=== PATIENT | female | born 1960 | race African-American/Black ===

== ENCOUNTER 2016-08-17 22:51 | Emergency (ER) | payer MEDICARE, MEDICAID ==
[2016-08-17] MEDS ORDERED: GUAIFENESIN/CODEINE PHOS 100-10 MG/ 5 ML UDC PO ONE (23:54)
[2016-08-17] MEDS ORDERED: ACETAMINOPHEN 325 MG TABLET PO ONE (23:54)
[2016-08-17] MEDS ORDERED: ONDANSETRON 4 MG TAB.RAPDIS PO ONE (23:54)
--- NOTE | 2016-08-18 00:10 | ER Document Report ---
ED General - General Chief Complaint: Cough Stated Complaint: NEAR SYNCOPE Time seen by provider: 23:25 Mode of Arrival: Medic Information source: Patient TRAVEL OUTSIDE OF THE U.S. IN LAST 30 DAYS: No - HPI Notes: Patient is a pleasant 56-year-old female recently returned from a one-month trip to [facility] 4 days ago presents with report of cough congestion that started 4 days ago with a questionable fever. She's had some nausea and vomited once without blood. She denies any chest pain abdominal pain or diarrhea. The patient reports a mild headache not the worst of her life. She denies any neck stiffness. The patient reports she did not take any prophylactic treatment for malaria while in [facility], and she reports that 4 years ago she had a malarial infection. The patient reports a mild skin rash right forearm, but thinks she may have either had a mosquito bite or some other exposure. No other skin rash. Patient reports she felt somewhat lightheaded at home earlier and called for EMS. Patient had stable vital signs and EMS gave her IV Zofran and a fluid bolus en route to the emergency department. - Related Data Allergies/Adverse Reactions: No Known Allergies Allergy (Verified 08/18/16 00:31) Past Medical History - General Information source: Patient - Social History Smoking Status: Never Smoker Cigarette use (# per day): No Frequency of alcohol use: None Drug Abuse: None Lives with: Alone Family History: Reviewed & Not Pertinent Review of Systems - Review of Systems Notes: REVIEW OF SYSTEMS: CONSTITUTIONAL : Denies weight loss. EENT: Denies eye, ear, throat, or mouth pain or symptoms. Denies throat, tongue, or mouth swelling or difficulty swallowing. CARDIOVASCULAR: Denies chest pain. Denies palpitations or racing or irregular heart beat. Denies ankle edema. RESPIRATORY: Denies shortness of breath, difficulty breathing, or wheezing. GASTROINTESTINAL: Denies abdominal pain or distention. Denies diarrhea. Denies blood in vomitus, stools, or per rectum. Denies black, tarry stools. Denies constipation. GENITOURINARY: Denies difficulty urinating, painful urination, burning, frequency, blood in urine, or discharge. FEMALE GENITOURINARY: Denies vaginal bleeding, heavy or abnormal periods, irregular periods. Denies vaginal discharge or odor. MUSCULOSKELETAL: Denies back or neck pain or stiffness. Denies joint pain or swelling. SKIN: Denies known insect bites. HEMATOLOGIC : Denies easy bruising or bleeding. LYMPHATIC: Denies swollen, enlarged glands. NEUROLOGICAL: Denies confusion or altered mental status. Denies passing out or loss of consciousness. Denies weakness or paralysis or loss of use of either side. Denies problems with gait or speech. Denies sensory loss, numbness, or tingling. Denies seizures. PSYCHIATRIC: Denies anxiety or stress. Denies depression, suicidal ideation, or homicidal ideation. ALL OTHER SYSTEMS REVIEWED AND NEGATIVE. Dictation was performed using [employer] voice recognition software Physical Exam - Vital signs Vitals: Temp Pulse Resp BP Pulse Ox 98.6 F 73 16 134/96 H 100 08/17/16 23:06 08/17/16 23:06 08/17/16 23:06 08/17/16 23:06 08/17/16 23:06 - Notes Notes: PHYSICAL EXAMINATION: GENERAL: Well-appearing, well-nourished and in no acute distress. HEAD: Atraumatic, normocephalic. EYES: Pupils equal round and reactive to light, extraocular movements intact, conjunctiva are normal. ENT: Nares patent, oropharynx clear without exudates. Moist mucous membranes. Coryza noted. NECK: Normal range of motion, supple without lymphadenopathy. No meningismus. LUNGS: Breath sounds clear to auscultation bilaterally and equal. No wheezes rales or rhonchi. HEART: Regular rate and rhythm without murmurs ABDOMEN: Soft, nontender, nondistended abdomen. No guarding, no rebound. No masses appreciated. Female : deferred Musculoskeletal: Normal range of motion, no pitting or edema. No cyanosis. NEUROLOGICAL: Cranial nerves grossly intact. Normal speech. Normal sensory, motor exams. No cerebellar ataxia. Patient is alert and oriented 3. PSYCH: Normal mood, normal affect. SKIN: Warm, Dry, normal turgor. Mild maculopapular rash right forearm appears more of a contact dermatitis. There is no distal splinter lesions. There is no intertriginous lesions. No cellulitis or evidence for abscess. No other rash noted. Course - Re-evaluation Re-evalutation: 08/18/16 08:02 Initial malaria evaluation study was negative. Chest x-ray negative for pneumonia or congestive heart failure. There is no evidence for arrhythmia or electrolyte imbalance or anemia or GI bleed or influenza. Findings more so with a viral etiology versus bronchitis. Patient given Zithromax by mouth. Robitussin with codeine for cough. - Vital Signs Vital signs: Temp Pulse Resp BP Pulse Ox 98.6 F 66 19 134/88 H 97 08/17/16 23:06 08/18/16 06:39 08/18/16 06:39 08/18/16 06:39 08/18/16 06:39 - Laboratory Result Diagrams: 08/18/16 01:30 08/18/16 01:30 Laboratory results interpreted by me: 08/18/16 08/18/16 01:30 01:30 MCV 79 L MCH 25.6 L RDW 16.1 H Chloride 109 H BUN 21 H Glucose 120 H - EKG Interpretation by Me EKG shows normal: Sinus rhythm Additional EKG results interpreted by me: 08/18/16 06:15 EKG as interpreted by me showed normal sinus rhythm a rate of 70. There is no gross evidence for acute TX or ischemia identified. No old EKG available for comparison. Discharge - Discharge Clinical Impression: Fever, Bronchitis, Dermatitis Clinical Impression: (Ruled Out): Acrodynia due to mercury Condition: Stable Disposition: HOME, SELF-CARE Instructions: Corticosteroid Medication ([facility]), Family Physicians / Practices Additional Instructions: Fever Fever is the body's reaction to infection. Fever can also occur with illnesses that create fever-producing substances in the body. By itself, fever is not harmful. It helps the body fight invading germs. We are more concerned with: (1) What's causing the fever? (2) How can we keep you more comfortable until the fever goes away? Early in an illness, symptoms are often so vague that a diagnosis can't be made. If the doctor hasn't identified a clear cause for your fever, you will probably develop new symptoms within the next two days. Contact the doctor if you develop severe worsening headache, rash, chest pain, cough with yellow or green sputum, difficulty breathing, abdominal pain, or other new symptoms. There is no reason to treat a fever if you're comfortable. If the fever is causing aches, headache, and fatigue, you can treat it with ibuprofen (Advil , Nuprin, etc) or acetaminophen (Tylenol). Follow the directions on the bottle. Get plenty of liquids (three quarts per day). Rest. Physical work or sports will raise the temperature higher and make you feel much worse. Dress lightly. If you're chilling, this means the temperature is trying to go higher. Take ibuprofen or acetaminophen. When you feel sweaty and "feverish" the temperature is coming down. If the fever doesn't go away within two days or if you become more ill, call the doctor or return at once for re-examination. Bronchitis You have acute bronchitis. This disease is an infection or inflammation of the air passageways in your lungs. Symptoms usually include cough, low grade fever, shortness of breath, and wheezing. The cough usually persists for a couple of weeks. Most cases of bronchitis get better without antibiotics. We prescribe antibiotics when we believe bacteria are damaging your airways, or if there's high risk the bronchitis will worsen into pneumonia. Increase your fluid intake. A cool mist humidifier may make your lungs more comfortable. An expectorant (cough medicine that loosens phlegm) can help. If you smoke, STOP!!! Recovery from bronchitis can be somewhat slow, but you should see improvement within a day or two. Repeated episodes of bronchitis may result in lung damage -- for example, chronic bronchitis, recurrent pneumonias, or emphysema. Call the doctor if you develop increasing fever, shortness of breath, chest pain, bloody sputum, or otherwise worsen. If you have not improved at all after several days, contact the physician. Drink plenty fluids. Apply hydrocortisone steroid cream to the skin rash 2-3 times per day as needed. Take Benadryl for any further itching. Prescriptions: Azithromycin [Zithromax 250 mg Tablet] 250 mg PO DAILY #4 tablet Guaifenesin/Codeine Phos [Robitussin-AC Syrup 59 ml] 10 ml PO QIDP PRN #200 ml PRN Reason:
[2016-08-18 01:58] LABS: ABSOLUTE LYMPHOCYTES (AUTO) 1.8 10^3/uL (0.5-4.7); ABSOLUTE MONOCYTES (AUTO) 0.6 10^3/uL (0.1-1.4); ABSOLUTE NEUT (AUTO) 3.2 10^3/uL (1.7-8.2); BASOPHILS % (AUTO) 0.7 % (0-2); EOSINOPHILS % (AUTO) 0.6 % (0-6); HEMATOCRIT 37.6 % (36.0-47.0); HEMOGLOBIN 12.2 g/dL (12.0-15.5); LYMPHOCYTES % (AUTO) 32.2 % (13-45); MEAN CORPUSCULAR HEMOGLOBIN 25.6 pg (27.0-33.4); MEAN CORPUSCULAR HGB CONC 32.5 g/dL (32.0-36.0); MEAN CORPUSCULAR VOLUME 79 fl (80-97); MONOCYTES % (AUTO) 9.9 % (3-13); RED BLOOD COUNT 4.76 10^6/uL (3.72-5.28); RED CELL DISTRIBUTION WIDTH 16.1 % (11.5-14.0); SEGMENTED NEUTROPHILS % (AUTO) 56.6 % (42-78); WHITE BLOOD COUNT 5.7 10^3/uL (4.0-10.5)
[2016-08-18 02:19] LABS: ALANINE AMINOTRANSFERASE 38 U/L (9-52); ALBUMIN 3.6 g/dL (3.5-5.0); ALKALINE PHOSPHATASE 91 U/L (38-126); ANION GAP 11 (5-19); ASPARTATE AMINO TRANSFERASE 29 U/L (14-36); BILIRUBIN,DIRECT 0.2 mg/dL (0.0-0.4); BILIRUBIN,TOTAL 0.5 mg/dL (0.2-1.3); BLOOD UREA NITROGEN 21 mg/dL (7-20); CALCIUM 9.2 mg/dL (8.4-10.2); CARBON DIOXIDE 24 mmol/L (22-30); CHLORIDE 109 mmol/L (98-107); CREATININE RESULT 0.93 mg/dL (0.52-1.25); GLUCOSE 120 mg/dL (75-110); POTASSIUM 4.4 mmol/L (3.6-5.0); TOTAL PROTEIN 6.8 g/dL (6.3-8.2)
[2016-08-18] MEDS ORDERED: HYDROCODONE/ACETAMINOPHEN 10-325 MG TABLET PO ONE (02:45)
[2016-08-18 03:23] LABS: PROTHROMBIN TIME 12.2 SEC (11.4-15.4)
[2016-08-18 04:48] LABS: BLOOD PARASITE THIN SMEAR NO ORGANISMS SEEN
[2016-08-18 06:40] VITALS: BP 134/88
[2016-08-18 14:59] LABS: BLOOD PARASITE SCREEN RESULT NO ORGANISMS SEEN; BLOOD PARASITE THICK SMEAR NO ORGANISMS SEEN
[2016-08-18 15:00] LABS: PATH REVIEW PATHOLOGIST REVIEWED
--- NOTE | 2016-08-18 15:31 | EKG REPORT ---
SEVERITY:- ABNORMAL ECG - SINUS RHYTHM PROBABLE LEFT ATRIAL ABNORMALITY PROBABLE LEFT VENTRICULAR HYPERTROPHY : Confirmed by: Any Marks MD 18-Aug-2016 15:31:07
== END 2016-08-18 06:39 | disposition home or self-care (01) ==
LOC: ER 22:51
DX: R50.9 Fever, unspecified (principal); L25.9 Unspecified contact dermatitis, unspecified cause; J40 Bronchitis, not specified as acute or chronic; R51 Headache; R11.2 Nausea with vomiting, unspecified; R55 Syncope and collapse
CPT/HCPCS: 93005; 99284; 36415; 87040; 85025; 87207; 87015; 85610; 80053; 84484; 83605; 87804; 71020; 93010; A9270 ×3

== ENCOUNTER → 2016-09-09 | Outpatient (CLI) | payer MEDICARE, MEDICAID | LOC: WI 15:54 | PROVIDERS: ATTEND Internal Medicine | DX: Z12.31 Encounter for screening mammogram for malignant neoplasm of breast (principal) | CPT/HCPCS: 77067; G0202 ==

== ENCOUNTER 2018-01-02 19:01 | Emergency (ER) | payer MEDICARE, MEDICAID ==
[2018-01-02 19:19] VITALS: BP 150/99
[2018-01-02] MEDS ORDERED: ACETAMINOPHEN 325 MG TABLET PO ONE (20:43)
[2018-01-02] MEDS ORDERED: ACETAMINOPHEN 325 MG TABLET ONE (20:45)
--- NOTE | 2018-01-02 21:02 | ER Document Report ---
ED Medical Screen (RME) - General Chief Complaint: Leg Pain Stated Complaint: LEG PAIN Time Seen by Provider: 01/02/18 20:47 Mode of Arrival: Wheelchair Information source: Patient Notes: Patient is a 57-year-old female who presents the emergency department with chief complaint of right leg pain and low back pain. Patient reports she had a recent flight to [place], reports the pain started the very next day. Patient reports she was seen in a small emergency room in [place], had normal x-rays, was transferred to a tertiary facility due to apparent decreased rectal tone and possible urinary incontinence. Patient reports she was supposed to have an MRI but did not have one done. Today patient presents in acute distress, reports she has been in agonizing pain for several days. Patient has tenderness to palpation to right paraspinous muscles and also tenderness to palpation to posterior right leg all the way down to her calf. I did place an order for a venous Doppler patient was also upgraded and placed into a room for further evaluation due to her presentation as well as the documents presented with her suggesting decreased rectal tone and urinary incontinence. I have greeted and performed a rapid initial assessment of this patient. A comprehensive ED assessment and evaluation of the patient, analysis of test results and completion of the medical decision making process will be conducted by additional ED providers. Dictation of this chart was performed using voice recognition software; therefore, there may be some unintended grammatical errors. TRAVEL OUTSIDE OF THE [place] IN LAST 30 DAYS: No - Related Data Allergies/Adverse Reactions: No Known Allergies Allergy (Verified 08/18/16 00:31) Past Medical History - Social History Chew tobacco use (# tins/day): No Frequency of alcohol use: None Drug Abuse: None Renal/ Medical History: Denies: Hx Peritoneal Dialysis - Immunizations Hx Diphtheria, Pertussis, Tetanus Vaccination: Yes Physical Exam - Vital signs Vitals: Temp Pulse Resp BP Pulse Ox 98.0 F 88 18 150/99 H 100 01/02/18 19:18 01/02/18 19:18 01/02/18 19:18 01/02/18 19:18 01/02/18 19:18 Course - Vital Signs Vital signs: Temp Pulse Resp BP Pulse Ox 98.0 F 88 18 150/99 H 100 01/02/18 19:18 01/02/18 19:18 01/02/18 19:18 01/02/18 19:18 01/02/18 19:18 Doctor's Discharge - Discharge Referrals: RAMO MACK MD [Primary Care Provider] - Follow up as needed
[2018-01-02] MEDS ORDERED: METHYLPREDNISOLONE INJ 125 MG/2 ML SDV IV ONE (21:48)
[2018-01-02] MEDS ORDERED: FENTANYL CITRATE INJ/PF 100 MCG/2 ML AMPUL IV ONE (21:48)
[2018-01-02] MEDS ORDERED: ONDANSETRON HCL INJ/PF 4 MG/2 ML SDV IV ONE (21:48)
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
[2018-01-02 22:40] LABS: ABSOLUTE BASOPHILS # (AUTO) 0.1 10^3/uL (0.0-0.2); ABSOLUTE LYMPHOCYTES (AUTO) 1.6 10^3/uL (0.5-4.7); ABSOLUTE MONOCYTES (AUTO) 0.8 10^3/uL (0.1-1.4); ABSOLUTE NEUT (AUTO) 4.3 10^3/uL (1.7-8.2); BASOPHILS % (AUTO) 0.8 % (0-2); EOSINOPHILS % (AUTO) 0.7 % (0-6); HEMATOCRIT 38.4 % (36.0-47.0); HEMOGLOBIN 12.6 g/dL (12.0-15.5); LYMPHOCYTES % (AUTO) 23.7 % (13-45); MEAN CORPUSCULAR HEMOGLOBIN 25.6 pg (27.0-33.4); MEAN CORPUSCULAR HGB CONC 32.8 g/dL (32.0-36.0); MEAN CORPUSCULAR VOLUME 78 fl (80-97); MONOCYTES % (AUTO) 11.3 % (3-13); PLATELET COUNT 280 10^3/uL (150-450); RED BLOOD COUNT 4.93 10^6/uL (3.72-5.28); RED CELL DISTRIBUTION WIDTH 15.4 % (11.5-14.0); SEGMENTED NEUTROPHILS % (AUTO) 63.5 % (42-78); TOTAL CELLS COUNTED % (AUTO) 100 %; WHITE BLOOD COUNT 6.8 10^3/uL (4.0-10.5)
[2018-01-02 22:56] LABS: ANION GAP 13 (5-19); BLOOD UREA NITROGEN 14 mg/dL (7-20); C-REACTIVE PROTEIN 6.9 mg/L (<10.0); CALCIUM 9.4 mg/dL (8.4-10.2); CARBON DIOXIDE 22 mmol/L (22-30); CHLORIDE 109 mmol/L (98-107); GLUCOSE 102 mg/dL (75-110); POTASSIUM 3.7 mmol/L (3.6-5.0); SODIUM 144.2 mmol/L (137-145)
[2018-01-02 23:16] LABS: ERYTHROCYTE SEDIMENTATION RATE 30 mm/hr (0-30)
--- NOTE | 2018-01-02 23:31 | RADIOLOGY REPORT (SQ) ---
EXAM DESCRIPTION: US EXTREMITY VEINS UNILATERAL COMPLETED DATE/TME: 01/02/2018 20:48 CLINICAL HISTORY: 57 years, Female, RLE pain s/p long travel COMPARISON: None. TECHNIQUE: Real-time duplex imaging was acquired through both lower extremities for venous Doppler evaluation. Common femoral femoral popliteal and calf veins were evaluated. LIMITATIONS: None. FINDINGS: Veins in both lower extremity are patent on color Doppler and respond normally to compression and augmentation. No evidence of intraluminal thrombus IMPRESSION: No evidence of DVT in either lower extremity. 2011 [employer]- All Rights Reserved
--- NOTE | 2018-01-02 23:53 | RADIOLOGY REPORT (SQ) ---
EXAM DESCRIPTION: CT LUMBAR SPINE WITH IV CONTRAST COMPLETED DATE/TME: 01/02/2018 21:48 CLINICAL HISTORY: 57 years, Female, pain out of proportion COMPARISON: None. TECHNIQUE: Multiplanar imaging through the lumbar spine with IV contrast. Images stored on PACS. All CT scanners at this facility use dose modulation, iterative reconstruction, and/or weight based dosing when appropriate to reduce radiation dose to as low as reasonably achievable (ALARA). [facility]: Dose Right [facility]: CareDose [facility]: Dose Right [facility]: Teradose 4D [facility]: [employer] LIMITATIONS: None. FINDINGS: Lumbar alignment is maintained. No lumbar spine fracture. Vertebral body heights are preserved throughout. T12-L1: No central canal or neuroforaminal narrowing. L1-L2: No central canal or neuroforaminal narrowing L2-L3: No central canal or neuroforaminal narrowing L3-L4: Disc bulge and ligamentum flavum infolding results in mild central canal narrowing. Mild bilateral neuroforaminal narrowing. L4-L5: Disc bulge and marked bilateral facet hypertrophy results in moderate-severe central canal narrowing. Mild to moderate right neuroforaminal narrowing. Moderate to severe left neuroforaminal narrowing. L5-S1: Disc bulge results in mild central canal narrowing. Right facet hypertrophy results in mild right neuroforaminal narrowing. Partially visualized intra-abdominal structures show descending and sigmoid colon diverticula. Small hiatal hernia. IMPRESSION: 1. No acute lumbar spine finding. 2. Multilevel degenerative lumbar spine changes worse at L4-L5 as described. 3. Colonic diverticulosis in the partially seen abdomen TECHNICAL DOCUMENTATION: Quality ID # [id number]: Final reports with documentation of one or more dose reduction techniques (e.g., Automated exposure control, adjustment of the mA and/or kV according to patient size, use of iterative reconstruction technique) 2010 [employer]- All Rights Reserved
== END 2018-01-03 00:22 | disposition home or self-care (01) ==
LOC: ER 19:01
DX: M54.41 Lumbago with sciatica, right side (principal); M47.9 Spondylosis, unspecified; R11.0 Nausea; R03.0 Elevated blood-pressure reading, without diagnosis of hypertension; M79.604 Pain in right leg
CPT/HCPCS: 99284; 96374; 96375; 36415; 85025; 85652; 86140; 80048; 93971; 72132; J3010; J2930; J2405

== ENCOUNTER 2018-01-08 10:37 | Inpatient (IN) | payer MEDICARE, MEDICAID ==
[2018-01-08] MEDS ORDERED: NORMAL SALINE 1000 ML 1,000 ML IV ONE (10:54)
[2018-01-08] MEDS ORDERED: NORMAL SALINE 250 ML IV PRN (10:58)
--- NOTE | 2018-01-08 10:59 | ER Document Report ---
ED General - General Mode of Arrival: Ambulatory Information source: Patient TRAVEL OUTSIDE OF THE [place] IN LAST 30 DAYS: No <NANETTE FLEMING - Last Filed: 01/08/18 12:29> <TETE PERERA - Last Filed: 01/08/18 14:43> - General Stated Complaint: RECTAL BLEEDING Time Seen by Provider: 01/08/18 10:42 Notes: Patient is a 58 year old female with hyperlipidemia and L4-L5 spondoylosis presents to the emergency department complaining of rectal bleeding and some abdominal cramps onset this morning. Patient states she is unsure when the bleeding started but noticed it this morning. Patient states she has been taking a lot of Advil this past week due to her chronic back pain and has been ED to ED while in [place] where she was told her lower lumbar disks have moved. While obtaining history, patient had a bowel movement on a bedpan with a gross amount of bright marroon blood with clots and some stool. According to nurse, patient states she had 4 episodes of similar bowel movements this morning. Patient was recently prescribed Oxycodone 5 mg, 9 tablets on 12/31/2017. She also received Zofran, a Medrol Dosepak, Ibuprofen, and [place] 5 mg on 01/03/2018. (NANETTE FLEMING) The patient's hemoglobin today is about 1 g less than it was 2 days ago. (TETE PERERA) - Related Data Allergies/Adverse Reactions: No Known Allergies Allergy (Verified 08/18/16 00:31) Past Medical History - General Information source: Patient - Social History Smoking Status: Never Smoker Cigarette use (# per day): No Chew tobacco use (# tins/day): No Smoking Education Provided: No Frequency of alcohol use: None Family History: Reviewed & Not Pertinent - Past Medical History Cardiac Medical History: Reports: Hx Hypercholesterolemia - Immunizations Hx Diphtheria, Pertussis, Tetanus Vaccination: Yes <NANETTE FLEMING - Last Filed: 01/08/18 12:29> Review of Systems - Review of Systems Constitutional: No symptoms reported EENT: No symptoms reported Cardiovascular: No symptoms reported Respiratory: No symptoms reported Gastrointestinal: See HPI, Rectal bleeding Genitourinary: No symptoms reported Female Genitourinary: No symptoms reported Musculoskeletal: No symptoms reported Skin: No symptoms reported Hematologic/Lymphatic: No symptoms reported Neurological/Psychological: No symptoms reported -: Yes All other systems reviewed and negative <NANETTE FLEMING - Last Filed: 01/08/18 12:29> Physical Exam <NANETTE FLEMING - Last Filed: 01/08/18 12:29> <TETE PERERA - Last Filed: 01/08/18 14:43> - Vital signs Vitals: Temp Pulse Resp BP Pulse Ox 98.7 F 92 16 126/73 H 100 01/08/18 10:45 01/08/18 10:45 01/08/18 10:45 01/08/18 10:45 01/08/18 10:45 - Notes Notes: GENERAL: Alert, appears uncomfortable. HEAD: Normocephalic, atraumatic. EYES: Pupils equal, round, and reactive to light. Extraocular movements intact. ENT: Oral mucosa moist, tongue midline. NECK: Full range of motion. Supple. Trachea midline. LUNGS: Clear to auscultation bilaterally, no wheezes, rales, or rhonchi. No respiratory distress. HEART: Regular rate and rhythm. No murmurs, gallops, or rubs. ABDOMEN: Soft, non-tender. Non-distended. Bowel sounds present in all 4 quadrants. EXTREMITIES: Moves all 4 extremities spontaneously. NEUROLOGICAL: Alert and oriented x3. Normal speech. PSYCH: Normal affect, normal mood. SKIN: Warm, dry, normal turgor. No rashes or lesions noted. RECTAL: While obtaining history, patient had a bowel movement in a bedpan with a gross amount of bright marroon blood with clots and some stool. (NANETTE FLEMING) Course - Laboratory Result Diagrams: 01/08/18 11:10 01/08/18 11:10 <NANETTE FLEMING - Last Filed: 01/08/18 12:29> - Laboratory Result Diagrams: 01/08/18 11:10 01/08/18 12:08 - EKG Interpretation by Me EKG shows normal: Sinus rhythm, Ivins, Intervals, QRS Complexes, ST-T Waves Rate: Tachycardia - 104 Voltage: Consistant with LVH When compared to previous EKG there are: No significant change - Consults Dr. Farooq Time consulted: 14:40 Consulted provider: will come to ER <TETE PERERA - Last Filed: 01/08/18 14:43> - Re-evaluation Re-evalutation: 01/08/18 14:42 At one point the patient's blood pressure did drop into the 90 systolic range. Her tachycardia has never been much more than 110. Her blood pressure does seem to respond to blood transfusions and IV fluids. (TETE PERERA) - Vital Signs Vital signs: Temp Pulse Resp BP Pulse Ox 98.7 F 92 12 130/90 H 100 01/08/18 10:45 01/08/18 10:45 01/08/18 12:01 01/08/18 12:36 01/08/18 12:01 - Laboratory Laboratory results interpreted by me: 01/08/18 01/08/18 01/08/18 11:00 11:10 11:10 Hgb 11.7 L Hct 35.4 L MCV 78 L MCH 25.7 L RDW 15.4 H Potassium Chloride Glucose Total Protein Albumin Stool for White Cells MODERATE H Crossmatch See Detail 01/08/18 01/08/18 12:08 12:08 Hgb Hct MCV MCH RDW Potassium 3.1 L Chloride 110 H Glucose 119 H Total Protein 6.2 L Albumin 3.2 L Stool for White Cells Crossmatch See Detail Critical Care Note - Critical Care Note Total time excluding time spent on procedures (mins): 40 <TETE PERERA - Last Filed: 01/08/18 14:43> Discharge <NANETTE FLEMING - Last Filed: 01/08/18 12:29> - Discharge Admitting Provider: Hospitalist Unit Admitted: ICU <TETE PERERA - Last Filed: 01/08/18 14:43> - Discharge Clinical Impression: Colitis, Bloody stools, Hypokalemia Chronic low back pain Qualifiers: Back pain laterality: unspecified Sciatica presence: unspecified whether sciatica present Qualified Code(s): M54.5 - Low back pain Anemia Qualifiers: Anemia type: other cause Other causes of anemia: acute posthemorrhagic Qualified Code(s): D62 - Acute posthemorrhagic anemia Condition: Fair Disposition: ADMITTED INPATIENT Referrals: TURNER WALTER DO [Primary Care Provider] - Follow up as needed Scribe Attestation: 01/08/18 11:08 I personally performed the services described in the documentation, reviewed and edited the documentation which was dictated to the scribe in my presence, and it accurately records my words and actions. (TETE PERERA) Scribe Documentation - Scribe Written by Scribe:: Ingrid Richardson, 01/08/2018 11:05 acting as scribe for :: Lakesha <NANETTE FLEMING - Last Filed: 01/08/18 12:29>
[2018-01-08 11:36] LABS: ABSOLUTE LYMPHOCYTES (AUTO) 1.9 10^3/uL (0.5-4.7); ABSOLUTE NEUT (AUTO) 6.7 10^3/uL (1.7-8.2); BASOPHILS % (AUTO) 0.5 % (0-2); EOSINOPHILS % (AUTO) 0.2 % (0-6); HEMATOCRIT 35.4 % (36.0-47.0); HEMOGLOBIN 11.7 g/dL (12.0-15.5); LYMPHOCYTES % (AUTO) 19.6 % (13-45); MEAN CORPUSCULAR HEMOGLOBIN 25.7 pg (27.0-33.4); MEAN CORPUSCULAR HGB CONC 33.2 g/dL (32.0-36.0); MEAN CORPUSCULAR VOLUME 78 fl (80-97); MONOCYTES % (AUTO) 10.1 % (3-13); PLATELET COUNT 324 10^3/uL (150-450); RED BLOOD COUNT 4.57 10^6/uL (3.72-5.28); RED CELL DISTRIBUTION WIDTH 15.4 % (11.5-14.0); SEGMENTED NEUTROPHILS % (AUTO) 69.6 % (42-78); TOTAL CELLS COUNTED % (AUTO) 100 %; WHITE BLOOD COUNT 9.7 10^3/uL (4.0-10.5)
[2018-01-08 12:40] LABS: ALANINE AMINOTRANSFERASE 23 U/L (9-52); ALBUMIN 3.2 g/dL (3.5-5.0); ALKALINE PHOSPHATASE 51 U/L (38-126); ANION GAP 12 (5-19); ASPARTATE AMINO TRANSFERASE 17 U/L (14-36); BILIRUBIN,DIRECT 0.3 mg/dL (0.0-0.4); BILIRUBIN,TOTAL 0.4 mg/dL (0.2-1.3); BLOOD UREA NITROGEN 13 mg/dL (7-20); CALCIUM 8.8 mg/dL (8.4-10.2); CARBON DIOXIDE 22 mmol/L (22-30); CHLORIDE 110 mmol/L (98-107); GLUCOSE 119 mg/dL (75-110); POTASSIUM 3.1 mmol/L (3.6-5.0); SODIUM 144.1 mmol/L (137-145); TOTAL PROTEIN 6.2 g/dL (6.3-8.2)
[2018-01-08] MEDS ORDERED: HYDROMORPHONE HCL INJ/PF 2 MG/ML AMPULE IV ONE ×2 (14:15→17:59)
[2018-01-08] MEDS ORDERED: LEVOFLOXACIN 750 MG/D5W RTU 750 MG/150 ML RTUPB IV ONE (14:16)
[2018-01-08] MEDS ORDERED: METRONIDAZOLE 500 MG/NS RTU 500 MG/100 ML RTUPB IV ONE (14:16)
[2018-01-08] MEDS ORDERED: ONDANSETRON HCL INJ/PF 4 MG/2 ML SDV IV ONE (14:16)
[2018-01-08 15:16] LABS: INTERNATIONAL RATION (INR) 1.09; PROTHROMBIN TIME 14.7 SEC (11.4-15.4)
[2018-01-08 15:17] LABS: PARTIAL THROMBOPLASTIN TIME 37.1 SEC (23.5-35.8)
[2018-01-08 16:21] LABS: ARTERIAL BLOOD BASE EXCESS -6.1 mmol/L; ARTERIAL BLOOD H2CO3 1.05 mmol/L (1.05-1.35); ARTERIAL BLOOD HCO3 18.8 mmol/L (20-26); ARTERIAL BLOOD O2 SATURATION 95.4 % (94-98); ARTERIAL BLOOD PCO2 34.8 mmHg (35-45); ARTERIAL BLOOD PH 7.35 (7.35-7.45); ARTERIAL BLOOD PO2 80.2 mmHg (80-100); ARTERIAL BLOOD TOTAL CO2 19.8 mmol/L (21-25)
[2018-01-08 16:22] LABS: ARTERIAL BLOOD FIO2 ROOM AIR
[2018-01-08] MEDS ORDERED: MAGNESIUM SULFATE/D5W 1 GM/100 ML RTUPB IV ONE (17:30)
[2018-01-08] MEDS ORDERED: DEXTROSE 50%-WATER 25 GM/50 ML DISP.SYRIN IV PRN ×2 (17:37)
[2018-01-08] MEDS ORDERED: DEXTROSE 40% GEL 15 GM TUBE PO PRN ×2 (17:37)
[2018-01-08] MEDS ORDERED: GLUCAGON,HUMAN RECOMB 1 MG INJ SUBCUT PRN (17:37)
--- NOTE | 2018-01-08 17:46 | PDOC CONSULTATION ---
Consultation Consult Date: 01/08/18 Attending physician:: TETE PERERA Consult reason:: GI bleeding History of Present Illness Admission Date/PCP: 01/08/18 15:37 TURNER WALTER DO History of Present Illness: RC BULL is a 58 year old female Who presents to the emergency department via ground rescue complaining of acute onset abdominal pain, and loose bloody bowel movements starting at 5:00 this morning. Patient denies history of previous gastrointestinal problems; she has a remote history of colonoscopy in [place]. Bleeding continued, associated with weakness. She was seen in the emergency department where she was having multiple loose bloody bowel movement. Hemoglobin was 11.7. She was transfused 2 units of blood, admitted to the medicine service for further evaluation and treatment. Patient denies history of trauma, gastrointestinal problems bleeding or family history of colorectal carcinoma. Past Medical History Past Medical History: Sciatica with right lower extremity weakness Cardiac Medical History: Reports: Hyperlipidema Past Surgical History Past Surgical History: section Social History Information Source: Patient Smoking Status: Never Smoker Frequency of Alcohol Use: Rare Hx Recreational Drug Use: No Hx Prescription Drug Abuse: No - Advance Directive Resuscitation Status: Full Code Family History Family History: Reviewed & Not Pertinent Parental Family History Reviewed: Yes Children Family History Reviewed: Yes Sibling(s) Family History Reviewed.: Yes Medication/Allergy Allergies/Adverse Reactions: No Known Allergies Allergy (Verified 08/18/16 00:31) Review of Systems Constitutional: ABSENT: chills, fever(s), headache(s), weight gain, weight loss Eyes: ABSENT: visual disturbances Ears: ABSENT: hearing changes Cardiovascular: ABSENT: chest pain, dyspnea on exertion, edema, orthropnea, palpitations Respiratory: ABSENT: cough, hemoptysis Gastrointestinal: PRESENT: as per HPI Genitourinary: ABSENT: dysuria, hematuria Musculoskeletal: PRESENT: other - Marked lower extremity weakness and pain attributed to sciatica Neurological: PRESENT: as per HPI Psychiatric: PRESENT: anxiety Hematologic/Lymphatic: ABSENT: easy bleeding, easy bruising Physical Exam Vital Signs: Temp Pulse Resp BP Pulse Ox 98.9 F 76 17 105/65 100 01/08/18 16:44 01/08/18 16:04 01/08/18 16:45 01/08/18 16:45 01/08/18 16:45 Intake & Output 01/07/18 01/08/1801/09/18 06:59 06:59 06:59 Intake Total 550 Balance 550 General appearance: PRESENT: mild distress Head exam: PRESENT: normocephalic Eye exam: PRESENT: EOMI Ear exam: PRESENT: normal external ear exam Neck exam: PRESENT: full ROM Respiratory exam: PRESENT: clear to auscultation isaac Cardiovascular exam: PRESENT: RRR Pulses: PRESENT: normal carotid pulses, normal radial pulses, normal femoral pulses GI/Abdominal exam: PRESENT: hypoactive bowel sounds, soft, other - Diffusely sore but no peritoneal signs no rigidity Rectal exam: PRESENT: deferred Extremities exam: PRESENT: other - Limited range of motion right lower extremity Musculoskeletal exam: PRESENT: deformity, other - Right lower extremity with pain Neurological exam: PRESENT: alert, awake, oriented to person, oriented to place , oriented to time, oriented to situation Psychiatric exam: PRESENT: appropriate affect Results Laboratory Results: 01/08/18 15:59 Carbonic Acid 1.05 HCO3/H2CO3 Ratio 17:1 ABG pH 7.35 ABG pCO2 34.8 L ABG pO2 80.2 ABG HCO3 18.8 L ABG O2 Saturation 95.4 ABG Base Excess -6.1 FiO2 ROOM AIR Assessment & Plan - Diagnosis (1) Acute gastrointestinal hemorrhage Is this a current diagnosis for this admission?: Yes Plan: Impression: Acute GI bleeding from the rectum; highly suspicious for colitis however patient's recent excessive consumption of nonsteroidal anti- inflammatory medications and pain medications put patient at risk for peptic ulcer disease gastritis etc. Recommendations: 1. Admit to hospitalist service, monitor hemodynamic parameters, clear liquids , n.p.o. after midnight 2. Start gentle bowel prep tonight in anticipation of upper and lower endoscopy by [facility] surgicalist, Dr. Reis. (2) Anemia Qualifiers: Anemia type: other cause Other causes of anemia: acute posthemorrhagic Qualified Code(s): D62 - Acute posthemorrhagic anemia Is this a current diagnosis for this admission?: Yes (3) Chronic low back pain Qualifiers: Back pain laterality: unspecified Sciatica presence: unspecified whether sciatica present Qualified Code(s): M54.5 - Low back pain; G89.29 - Other chronic pain; G89.29 - Other chronic pain Is this a current diagnosis for this admission?: Yes (4) Colitis Is this a current diagnosis for this admission?: Yes (5) Hypokalemia Is this a current diagnosis for this admission?: Yes (6) Degenerative joint disease of low back Is this a current diagnosis for this admission?: Yes - Time Time Spent: 30 to 50 Minutes Smoking Cessation Education: 3 to 10 minutes Medications reviewed and adjusted accordingly: Yes Anticipated discharge: Home - Inpatient Certification Based on my medical assessment, after consideration of the patient's comorbidities, presenting symptoms, or acuity I expect that the services needed warrant INPATIENT care.: Yes I certify that my determination is in accordance with my understanding of Medicare's requirements for reasonable and necessary INPATIENT services [42 CFR 412.3e].: Yes Medical Necessity: Need for Pain Control, Need for Surgery
[2018-01-08] MEDS ORDERED: ONDANSETRON HCL/PF 4 MG in NORMAL SALINE 50 ML IV SCH (18:00)
[2018-01-08] MEDS ORDERED: HYDROMORPHONE HCL INJ/PF 2 MG/ML AMPULE ONE (18:03)
[2018-01-08] MEDS: PANTOPRAZOLE SODIUM 40 MG VIAL IV SCH ×2 (18:11→21:54)
[2018-01-08] MEDS: ONDANSETRON HCL INJ/PF 4 MG/2 ML SDV IV SCH (18:11)
[2018-01-08] MEDS ORDERED: PEG 3350/NA SULF,BICARB,CL/KCL 4000 ML PO ONE (19:00)
[2018-01-08 19:01] LABS: HEMATOCRIT 31.2 % (36.0-47.0); HEMOGLOBIN 10.6 g/dL (12.0-15.5); MEAN CORPUSCULAR HEMOGLOBIN 26.7 pg (27.0-33.4); MEAN CORPUSCULAR VOLUME 78 fl (80-97); PLATELET COUNT 205 10^3/uL (150-450); RED BLOOD COUNT 3.97 10^6/uL (3.72-5.28); RED CELL DISTRIBUTION WIDTH 16.5 % (11.5-14.0)
[2018-01-08 19:10] LABS: INTERNATIONAL RATION (INR) 1.14; PROTHROMBIN TIME 15.2 SEC (11.4-15.4)
--- NOTE | 2018-01-08 19:24 | EKG REPORT ---
SEVERITY:- ABNORMAL ECG - SINUS TACHYCARDIA LVH WITH SECONDARY REPOLARIZATION ABNORMALITY : Confirmed by: Jabari Shelby MD 08-Jan-2018 19:23:53
[2018-01-08] MEDS: DEXTROSE 10%-WATER 1,000 ML IV PRN (19:39)
--- NOTE | 2018-01-08 22:09 | PDOC H&P ---
History of Present Illness Admission Date/PCP: 01/08/18 15:37 TURNER WALTER DO Patient complains of: GI Bleed History of Present Illness: RC BULL is a 58 year old female with PMHx hyperlipidemia and chronic LBP presents to the emergency department complaining of rectal bleeding and some abdominal cramps onset this morning. She was having back pain a week ago was given a does of Merol Doespak, Motrin by ED doctor. She states that it was not controlling her pain and she bought OTC Aleive. She has been Motrin, Aleiv and Steroid for a week. While in ED she multiple BBPR. Pt was given 2 PRBC and IV fluids. She was admitted for possible Endoscopy/Colonoscopyo. She states she feels weak with crampy abdominal pain, o/w denies any fever, chill, n/v, chest pain, sob or any urinary symptoms. Denies having this problem before. Denies EtOH abuse or personal/family history of GI malignancy. Past Medical History Cardiac Medical History: Reports: Hyperlipidema Social History Smoking Status: Never Smoker Frequency of Alcohol Use: Rare Hx Recreational Drug Use: No Hx Prescription Drug Abuse: No - Advance Directive Resuscitation Status: Full Code Family History Family History: Reviewed & Not Pertinent Parental Family History Reviewed: Yes Children Family History Reviewed: Yes Sibling(s) Family History Reviewed.: Yes Medication/Allergy Home Medications: Atorvastatin Calcium [Lipitor 40 mg Tablet] 40 mg PO QHS 01/08/18 Bisacodyl [Women's Laxative] 5 mg PO DAILYP PRN 01/08/18 Naproxen Sod/Diphenhydramine [Aleve Pm Caplet] 2 each PO Q8HP PRN 01/08/18 Oxycodone HCl [Oxy-Ir 5 mg Tablet] 5 mg PO Q8HP PRN 01/08/18 Allergies/Adverse Reactions: No Known Allergies Allergy (Verified 08/18/16 00:31) Review of Systems Constitutional: PRESENT: weakness. ABSENT: chills, fever(s), headache(s), weight gain, weight loss Eyes: PRESENT: as per HPI. ABSENT: visual disturbances Ears: PRESENT: as per HPI. ABSENT: hearing changes Nose, Mouth, and Throat: PRESENT: as per HPI Breasts: PRESENT: as per HPI Cardiovascular: PRESENT: as per HPI. ABSENT: chest pain, dyspnea on exertion, edema, orthropnea, palpitations Respiratory: ABSENT: cough, hemoptysis Gastrointestinal: PRESENT: abdominal pain, hematochezia, melena Genitourinary: PRESENT: as per HPI. ABSENT: dysuria, hematuria Musculoskeletal: PRESENT: back pain, other. ABSENT: joint swelling Integumentary: ABSENT: rash, wounds Neurological: ABSENT: abnormal gait, abnormal speech, confusion, dizziness, focal weakness, syncope Psychiatric: ABSENT: anxiety, depression, homidical ideation, suicidal ideation Endocrine: ABSENT: cold intolerance, heat intolerance, polydipsia, polyuria Hematologic/Lymphatic: ABSENT: easy bleeding, easy bruising Physical Exam Vital Signs: Temp Pulse Resp BP Pulse Ox 98.9 F 76 22 H 97/51 L 99 01/08/18 16:44 01/08/18 16:04 01/08/18 21:21 01/08/18 21:21 01/08/18 21:21 Intake & Output 01/07/18 01/08/18 01/09/18 06:59 06:59 06:59 Intake Total 900 Balance 900 General appearance: PRESENT: mild distress Head exam: PRESENT: atraumatic, normocephalic Eye exam: PRESENT: conjunctiva pink, EOMI, PERRLA. ABSENT: scleral icterus Neck exam: ABSENT: carotid bruit, JVD, lymphadenopathy, thyromegaly Respiratory exam: PRESENT: clear to auscultation isaac. ABSENT: rales, rhonchi, wheezes Cardiovascular exam: PRESENT: RRR. ABSENT: diastolic murmur, rubs, systolic murmur Pulses: PRESENT: normal dorsalis pedis pul GI/Abdominal exam: PRESENT: hyperactive bowel sounds, tenderness. ABSENT: ascites, diminished bowel sounds, distended, firm, guarding, hernia, hypoactive bowel sounds, mass, Hunter's sign, normal bowel sounds, organolmegaly, rebound, rigid, soft, other Rectal exam: PRESENT: deferred Extremities exam: PRESENT: full ROM. ABSENT: calf tenderness, clubbing, pedal edema Musculoskeletal exam: PRESENT: normal inspection, tenderness. ABSENT: ambulatory, deformity, dislocation, full ROM, other Neurological exam: PRESENT: alert, awake, oriented to person, oriented to place , oriented to time, oriented to situation, CN II-XII grossly intact. ABSENT: motor sensory deficit Psychiatric exam: PRESENT: appropriate affect, normal mood. ABSENT: homicidal ideation, suicidal ideation Skin exam: PRESENT: dry, intact, warm. ABSENT: cyanosis, rash Results Laboratory Results: 01/08/18 18:54 01/08/18 01/08/18 15:59 18:54 WBC 11.0 H RBC 3.97 Hgb 10.6 L Hct 31.2 L MCV 78 L MCH 26.7 L MCHC 34.0 RDW 16.5 H Plt Count 205 Carbonic Acid 1.05 HCO3/H2CO3 Ratio 17:1 ABG pH 7.35 ABG pCO2 34.8 L ABG pO2 80.2 ABG HCO3 18.8 L ABG O2 Saturation 95.4 ABG Base Excess -6.1 FiO2 ROOM AIR Assessment & Plan - Diagnosis (1) Acute gastrointestinal hemorrhage Is this a current diagnosis for this admission?: Yes Plan: Likely due to NSAIDs/Steroids abuse. Blood Transfusion, and volume resuscitation. Monitor Hydrodynamics. Admit to ICU for close monitoring. Continue IV fluids, Transfuse if Hbg < 9 or symptomatic. Surgery on board for Endoscopy/Colonoscopy tomorrow. Keep NPO. s/p 2 PRBC. f/u CBC if hbg 9, symptomatic or active bleeding please transfuse. PT/INR/PLT wnl. (2) Abdominal pain Is this a current diagnosis for this admission?: Yes Plan: Stool + for WBC, C-Diff negative. Continue Levo and Metro. Avoid NSAIDs. Supporitve care. f/u cultures. (3) Chronic low back pain Qualifiers: Back pain laterality: unspecified Sciatica presence: unspecified whether sciatica present Qualified Code(s): M54.5 - Low back pain; G89.29 - Other chronic pain; G89.29 - Other chronic pain Is this a current diagnosis for this admission?: Yes Plan: Supportive care. Pain management. Avoid NSAIDs. (4) Hypokalemia Is this a current diagnosis for this admission?: Yes Plan: Monitor electrolytes. Replace as needed.
[2018-01-08 22:30] LABS: APPEARANCE,URINE SLIGHTLY-CLOUDY; BILIRUBIN,URINE NEGATIVE (NEGATIVE); COLOR,URINE YELLOW; GLUCOSE, URINE NEGATIVE (NEGATIVE); KETONES,URINE NEGATIVE (NEGATIVE); LEUKOCYTE ESTERASE,URINE TRACE (NEGATIVE); NITRITE,URINE POSITIVE (NEGATIVE); PROTEIN,URINE 30 mg/dL (NEGATIVE); UROBILINOGEN,URINE NEGATIVE mg/dL (<2.0)
[2018-01-08] MEDS ORDERED: METRONIDAZOLE RTU 500 MG/NS 100 ML IV ONE (22:30)
[2018-01-08] MEDS ORDERED: MORPHINE SULFATE 10 MG/ML INJ IV PRN (22:54)
[2018-01-08] MEDS: HYDROMORPHONE HCL INJ/PF 2 MG/ML AMPULE IV PRN (23:50)
[2018-01-09 01:02] LABS: ABSOLUTE EOSINOPHILS # (AUTO) 0.1 10^3/uL (0.0-0.6); ABSOLUTE LYMPHOCYTES (AUTO) 1.9 10^3/uL (0.5-4.7); ABSOLUTE MONOCYTES (AUTO) 1.2 10^3/uL (0.1-1.4); ABSOLUTE NEUT (AUTO) 7.5 10^3/uL (1.7-8.2); BASOPHILS % (AUTO) 0.3 % (0-2); EOSINOPHILS % (AUTO) 0.7 % (0-6); HEMATOCRIT 29.4 % (36.0-47.0); HEMOGLOBIN 10.1 g/dL (12.0-15.5); MEAN CORPUSCULAR HEMOGLOBIN 26.8 pg (27.0-33.4); MEAN CORPUSCULAR HGB CONC 34.4 g/dL (32.0-36.0); MEAN CORPUSCULAR VOLUME 78 fl (80-97); MONOCYTES % (AUTO) 10.8 % (3-13); PLATELET COUNT 203 10^3/uL (150-450); RED BLOOD COUNT 3.77 10^6/uL (3.72-5.28); RED CELL DISTRIBUTION WIDTH 16.4 % (11.5-14.0); SEGMENTED NEUTROPHILS % (AUTO) 70.2 % (42-78); TOTAL CELLS COUNTED % (AUTO) 100 %; WHITE BLOOD COUNT 10.6 10^3/uL (4.0-10.5)
[2018-01-09] MEDS: ONDANSETRON HCL INJ/PF 4 MG/2 ML SDV IV SCH ×5 (01:09→23:54)
[2018-01-09 01:29] LABS: ANION GAP 10 (5-19); BLOOD UREA NITROGEN 12 mg/dL (7-20); CALCIUM 7.7 mg/dL (8.4-10.2); CARBON DIOXIDE 19 mmol/L (22-30); CHLORIDE 110 mmol/L (98-107); GLUCOSE 161 mg/dL (75-110); POTASSIUM 3.1 mmol/L (3.6-5.0); SODIUM 138.8 mmol/L (137-145)
[2018-01-09] MEDS: DEXTROSE 10%-WATER 1,000 ML IV PRN ×2 (03:33→22:56)
[2018-01-09] MEDS: HYDROMORPHONE HCL INJ/PF 2 MG/ML AMPULE IV PRN ×5 (03:34→22:42)
[2018-01-09] MEDS: METRONIDAZOLE RTU 500 MG/NS 100 ML IV SCH ×2 (06:35→16:00)
[2018-01-09] MEDS: PANTOPRAZOLE SODIUM 40 MG VIAL IV SCH ×2 (12:25→22:42)
[2018-01-09] MEDS ORDERED: ONDANSETRON HCL INJ/PF 4 MG/2 ML SDV ONE (13:47)
[2018-01-09] MEDS ORDERED: DIPHENHYDRAMINE HCL 50 MG/ML VIAL ONE (13:47)
[2018-01-09] MEDS ORDERED: EPINEPHRINE INJ 1 MG/10 ML DISP.SYRIN ONE (13:48)
[2018-01-09] MEDS ORDERED: FLUMAZENIL INJ 0.5 MG/5 ML VIAL ONE (13:48)
[2018-01-09] MEDS ORDERED: GLUCAGON,HUMAN RECOMB 1 MG INJ ONE (13:48)
[2018-01-09] MEDS ORDERED: NALOXONE HCL INJ/PF 0.4 MG/1 ML SDV ONE (13:48)
[2018-01-09] MEDS: MIDAZOLAM 2 MG/2 ML INJ ONE ×6 (14:13→15:00)
[2018-01-09] MEDS: FENTANYL CITRATE INJ/PF 100 MCG/2 ML AMPUL ONE ×5 (14:15→14:57)
[2018-01-09] MEDS: LEVOFLOXACIN 500 MG/D5W RTU 500 MG/100 ML RTUPB IV SCH (15:59)
[2018-01-09] MEDS ORDERED: DIPHENHYDRAMINE HCL 25 MG CAPSULE ONE (17:17)
--- NOTE | 2018-01-09 17:28 | Operative Report ---
Nonrecallable Operative Report DATE OF SURGERY: 01/09/18 PREOPERATIVE DIAGNOSIS: anemia, hematochetia, NSAIDs abuse POSTOPERATIVE DIAGNOSIS: same. antritis and duodenitis with microulcerations. Diffuse colonic diverticulosis from sigmoid to cecum. Bleeding colonic diverticular disease OPERATION: EGD with biopsy. Colonoscopy to cecum with biopsy SURGEON: LUCRECIA TORRES ANESTHESIA: Moderate Sedation - provoided by Dr. Torres (5 mg IVP of Verse; 100 mcg IVP Fentanyl) TISSUE REMOVED OR ALTERED: biopsy gastric, duodenal, and colonoic mucosa COMPLICATIONS: none ESTIMATED BLOOD LOSS: none INTRAOPERATIVE FINDINGS: antritis and duodenitis with microulcerations. diffuse bleeding diverticular disease of the entire colon (cecum to sigmoid colon) PROCEDURE: see dictation
[2018-01-09] MEDS ORDERED: MAG HYDROX/AL HYDROX/SIMETH SUSP 30 ML UDCUP PO SCH (17:45)
[2018-01-09] MEDS: SUCRALFATE 1 GM TABLET PO SCH ×2 (18:21→23:54)
[2018-01-09] MEDS: POTASSI CL 20 MEQ/50 ML RIDER 20 MEQ/50 ML RTUPB IV SCH ×2 (18:23→20:34)
--- NOTE | 2018-01-09 20:16 | PDOC PROGRESS REPORT ---
Subjective Progress Note for:: 01/09/18 Subjective:: Ms. Qian lobo who was admitted for GI bleed. Patient just had EGD and colonoscopy done. Patient says that she had an episode of hematochezia just before the procedure. She denies any dizziness, abdominal pain, nausea, hematemesis. EGD showed duodenitis and colonoscopy revealed diffuse diverticulosis with diverticular bleeding. Reason For Visit: GI BLEED Physical Exam Vital Signs: Temp Pulse Resp BP Pulse Ox 98.6 F 70 16 116/63 100 01/09/18 16:25 01/09/18 16:25 01/09/18 16:25 01/09/18 16:25 01/09/18 16:25 Intake & Output 01/08/18 01/09/18 01/10/18 06:59 06:59 06:59 Intake Total 1900 2300 Balance 1900 2300 Weight 198 lb 6.656 oz General appearance: PRESENT: no acute distress, well-developed, well-nourished Head exam: PRESENT: atraumatic, normocephalic Eye exam: PRESENT: conjunctiva pink, EOMI, PERRLA. ABSENT: scleral icterus Ear exam: PRESENT: normal external ear exam Mouth exam: PRESENT: moist, tongue midline Neck exam: ABSENT: carotid bruit, JVD, lymphadenopathy, thyromegaly Respiratory exam: PRESENT: clear to auscultation isaac. ABSENT: rales, rhonchi, wheezes Vascular exam: PRESENT: normal capillary refill GI/Abdominal exam: PRESENT: normal bowel sounds, soft. ABSENT: distended, guarding, mass, organolmegaly, rebound, tenderness Rectal exam: PRESENT: deferred Neurological exam: PRESENT: alert, awake, oriented to person, oriented to place , oriented to time, oriented to situation, CN II-XII grossly intact. ABSENT: motor sensory deficit Results Laboratory Results: 01/09/18 00:55 01/09/18 00:55 01/08/18 01/09/18 01/09/18 22:11 00:55 00:55 WBC 10.6 H RBC 3.77 Hgb 10.1 L Hct 29.4 L MCV 78 L MCH 26.8 L MCHC 34.4 RDW 16.4 H Plt Count 203 Seg Neutrophils % 70.2 Lymphocytes % 18.0 Monocytes % 10.8 Eosinophils % 0.7 Basophils % 0.3 Absolute Neutrophils 7.5 Absolute Lymphocytes 1.9 Absolute Monocytes 1.2 Absolute Eosinophils 0.1 Absolute Basophils 0.0 Sodium 138.8 Potassium 3.1 L Chloride 110 H Carbon Dioxide 19 L Anion Gap 10 BUN 12 Creatinine 0.58 Est GFR ( Amer) > 60 Est GFR (Non-Af Amer) > 60 Glucose 161 H Calcium 7.7 L Urine Color YELLOW Urine Appearance SLIGHTLY-CLOUDY Urine pH 5.0 Ur Specific [place] 1.020 Urine Protein 30 H Urine Glucose (UA) NEGATIVE Urine Ketones NEGATIVE Urine Blood MODERATE H Urine Nitrite POSITIVE H Ur Leukocyte Esterase TRACE H Urine WBC (Auto) 8 Urine RBC (Auto) 1 Assessment & Plan - Diagnosis (1) Anemia Qualifiers: Anemia type: other cause Other causes of anemia: acute posthemorrhagic Qualified Code(s): D62 - Acute posthemorrhagic anemia Is this a current diagnosis for this admission?: Yes Plan: Anemia secondary to GI bleed. Patient's hemoglobin initially was 9.7 hemoglobin today was 10.1. We will continue to monitor H&H. (2) Acute gastrointestinal hemorrhage Is this a current diagnosis for this admission?: Yes Plan: EGD showed duodenitis and micro ulcerations. Colonoscopy did reveal diffuse diverticulosis and diverticular bleeding. Patient was also noted to have a cecal polyp and had polypectomy. - Time Time Spent with patient: 15-24 minutes
[2018-01-09 21:57] LABS: HEMATOCRIT 27.3 % (36.0-47.0); HEMOGLOBIN 9.3 g/dL (12.0-15.5); MEAN CORPUSCULAR HEMOGLOBIN 26.6 pg (27.0-33.4); MEAN CORPUSCULAR VOLUME 78 fl (80-97); PLATELET COUNT 195 10^3/uL (150-450); RED BLOOD COUNT 3.49 10^6/uL (3.72-5.28); WHITE BLOOD COUNT 13.2 10^3/uL (4.0-10.5)
[2018-01-09] MEDS: METRONIDAZOLE 500 MG/NS RTU 500 MG/100 ML RTUPB IV SCH (22:42)
[2018-01-10] MEDS ORDERED: DIPHENHYDRAMINE HCL 25 MG CAPSULE PO ONE
[2018-01-10 01:31] LABS: ANION GAP 7 (5-19); BLOOD UREA NITROGEN 3 mg/dL (7-20); CALCIUM 7.4 mg/dL (8.4-10.2); CARBON DIOXIDE 22 mmol/L (22-30); CHLORIDE 110 mmol/L (98-107); GLUCOSE 131 mg/dL (75-110); SODIUM 138.9 mmol/L (137-145)
[2018-01-10 01:37] LABS: POTASSIUM 2.9 mmol/L (3.6-5.0)
[2018-01-10] MEDS: POTASSIUM CHLORIDE 20 MEQ/50 ML RTU IV SCH ×2 (02:09→04:16)
[2018-01-10] MEDS: HYDROMORPHONE HCL INJ/PF 2 MG/ML AMPULE IV PRN ×4 (06:02→21:20)
[2018-01-10] MEDS: SUCRALFATE 1 GM TABLET PO SCH ×3 (06:02→17:21)
[2018-01-10] MEDS: ONDANSETRON HCL INJ/PF 4 MG/2 ML SDV IV SCH ×4 (06:03→17:51)
[2018-01-10] MEDS: METRONIDAZOLE 500 MG/NS RTU 500 MG/100 ML RTUPB IV SCH ×3 (06:04→22:19)
[2018-01-10] MEDS: DEXTROSE 10%-WATER 1,000 ML IV PRN ×2 (07:17→17:51)
[2018-01-10] MEDS: PANTOPRAZOLE SODIUM 40 MG VIAL IV SCH ×2 (10:33→22:20)
[2018-01-10] MEDS ORDERED: GABAPENTIN 300 MG CAPSULE PO PRN (10:36)
[2018-01-10 10:58] LABS: HEMATOCRIT 27.1 % (36.0-47.0); HEMOGLOBIN 9.3 g/dL (12.0-15.5); MEAN CORPUSCULAR HEMOGLOBIN 26.8 pg (27.0-33.4); MEAN CORPUSCULAR HGB CONC 34.2 g/dL (32.0-36.0); MEAN CORPUSCULAR VOLUME 78 fl (80-97); PLATELET COUNT 210 10^3/uL (150-450); RED BLOOD COUNT 3.46 10^6/uL (3.72-5.28); WHITE BLOOD COUNT 8.5 10^3/uL (4.0-10.5)
--- NOTE | 2018-01-10 11:36 | PDOC PROGRESS REPORT ---
Subjective Progress Note for:: 01/10/18 Subjective:: patient denies abdominal pain, N/V, blood stools since the EGD and colonoscopy yesterday Reason For Visit: GI BLEED Physical Exam Vital Signs: Temp Pulse Resp BP Pulse Ox 98.9 F 81 16 122/59 L 100 01/10/18 07:17 01/10/18 07:17 01/10/18 07:17 01/10/18 07:17 01/10/18 09:02 Intake & Output 01/09/18 01/10/18 01/11/18 06:59 06:59 06:59 Intake Total 1900 3550 150 Balance 1900 3550 150 Weight 94.3 kg General appearance: PRESENT: no acute distress Respiratory exam: PRESENT: clear to auscultation isaac Cardiovascular exam: PRESENT: RRR GI/Abdominal exam: PRESENT: soft - not tender, not distended Results Laboratory Results: 01/10/18 10:44 01/10/18 10:44 01/09/18 01/10/18 01/10/18 21:45 01:08 09:18 WBC 13.2 H Cancelled RBC 3.49 L Cancelled Hgb 9.3 L Cancelled Hct 27.3 L Cancelled MCV 78 L Cancelled MCH 26.6 L Cancelled MCHC 34.0 Cancelled RDW 16.0 H Cancelled Plt Count 195 Cancelled Sodium 138.9 Potassium 2.9 L* Chloride 110 H Carbon Dioxide 22 Anion Gap 7 BUN 3 L Creatinine 0.61 Est GFR ( Amer) > 60 Est GFR (Non-Af Amer) > 60 Glucose 131 H Calcium 7.4 L 01/10/18 01/10/18 10:44 10:44 WBC 8.5 RBC 3.46 L Hgb 9.3 L Hct 27.1 L MCV 78 L MCH 26.8 L MCHC 34.2 RDW 16.0 H Plt Count 210 Sodium Potassium 3.3 L Chloride Carbon Dioxide Anion Gap BUN Creatinine Est GFR ( Amer) Est GFR (Non-Af Amer) Glucose Calcium Assessment & Plan - Diagnosis (1) Antritis of stomach Is this a current diagnosis for this admission?: Yes (2) Diverticular hemorrhage Is this a current diagnosis for this admission?: Yes - Plan Summary Plan Summary: A/ POD#1 after EGD colonoscopy for hematochetia EGD: antritis with microulcerations, treated with PPI, Maalox, Carafate Colonosopcy: diffuse diverticular disease sigmoid to cecum with diverticular bleeding throughout entire colon Both above findings are secondary to the long term care pharmacist use of Naproxyn stable H/H today Patient asymtomatic P/ recommend: 1) PPI with Carafate as outpatient x 3 months, then can scale back to Pepcid 20 mg po BID lifetime 2) Advance diet to low residue diet x 3 weeks, then advance to regular seed free diet afterward 3) Avoid NSAID's as pain killers i the future; Tylenol and Tramadol could be a good option
[2018-01-10] MEDS: LEVOFLOXACIN 500 MG/D5W RTU 500 MG/100 ML RTUPB IV SCH (13:00)
[2018-01-10] MEDS ORDERED: POTASSIUM CHLORIDE 10 MEQ CAPSULE.ER PO ONE (13:00)
--- NOTE | 2018-01-10 13:49 | OPERATIVE REPORT E ---
Operative Report NAME: RC BULL : 1960 AGE: 58Y DATE OF SURGERY: 01/09/2018 ROOM: 323 PREOPERATIVE DIAGNOSIS: 1. ANEMIA. 2. HEMATOCHEZIA. 3. NONSTEROIDAL ANTI-INFLAMMATORY DRUG ABUSE. POSTOPERATIVE DIAGNOSIS: 1. ANEMIA. 2. HEMATOCHEZIA. 3. NONSTEROIDAL ANTI-INFLAMMATORY DRUG ABUSE. 4. ENTERITIS AND DUODENITIS WITH MICRO ULCERATIONS. 5. DIFFUSE COLONIC DIVERTICULOSIS FROM SIGMOID TO CECUM 6. BLEEDING DIVERTICULAR DISEASE. 6. LESS THAN 0.5 CM CECAL POLYP. PROCEDURE: 1. Esophagogastroduodenoscopy with biopsy 2. colonoscopy to cecum with biopsy. 3. Cecal polypectomy SURGEON: LUCRECIA TORRES M.D. FINGERPRINT CLASSIFIER: None. ANESTHESIA: Moderate sedation provided by Dr. Torres (5 mg IV push of Versed and 100 mcg IV push of fentanyl). COMPLICATION: None. FLUIDS: 500 mL. BLOOD LOSS: Negligible. INTRAOPERATIVE FINDINGS: Antritis and duodenitis with micro ulcerations; diffuse bleeding diverticular disease of the entire colon (cecum to sigmoid); small < 0.5 cm cecal polyp INDICATIONS: This is a 58-year-old female with a history of hematochezia which occurred suddenly yesterday morning as she used the washroom. The patient reports a history of back surgery and has been using a large amount of naproxen (about 10 days). She denies abdominal pain. When she came to the hospital the patient's hemoglobin of 11.7 and hematocrit 35.4. She was given 2 units of blood and her H and H today is 10.1 and 29.4; platelet count and PT/INR are normal, the PTT is elevated 37.1. Procedure, its benefits and complications discussed with the patient. Per the patient she understands and decides to proceed. DESCRIPTION OF PROCEDURE: The procedure was done in the procedure room. The patient was placed in the lateral decubitus, IV sedation provided as above. A gastroscope was inserted without difficulty through the mouth, esophagus, stomach, and duodenum. Preparation was good. Microulcerations of the antrum and of the first portion of the duodenum were noted and random biopsy obtained from both areas. The patient was then retroflexed. The fundus, lesser curvature, and greater curvature on the stomach were normal. The scope was slowly withdrawn through the esophagus and was removed from the patient's mouth without difficulty. Following this, a colonoscopy was performed: the colonoscope was inserted into the rectum. Soon after insertion, it was noted that there was a large amount of blood throughout the entire rectal mucosa. The mucosa itself appeared to be normal as washing of the mucosa did not reveal any mucosal abnormalities. The blood appeared to originate from the diffuse diverticular disease which extended from the sigmoid up to the cecum. The preparation was good. At the level of the cecum, a small 0.5 cm polyp was identified and cold biopsy was obtained. The remnant of the polyp was cauterized. The colonoscope was then withdrawn, again diffuse bleeding with blood clots throughout the entire colon were identified; however, the mucosa appeared to be normal. Random biopsies of the transverse and left colon were obtained. The instrument was removed. The patient tolerated the procedure well and was transferred to the recovery room in satisfactory condition. DICTATING PHYSICIAN: LUCRECIA TORRES M.D. [id number] PHY#: [id number] ID: [id number] JOB#: [id number] ACCT: [id number] cc:LUCRECIA TORRES M.D. > MTDD
--- NOTE | 2018-01-10 15:01 | RADIOLOGY REPORT (SQ) ---
EXAM DESCRIPTION: L SPINE WHOLE COMPLETED DATE/TIME: 01/10/2018 2:51 pm REASON FOR STUDY: back pain COMPARISON: CT lumbar spine dated 01/02/2018. NUMBER OF VIEWS: Five views including obliques. TECHNIQUE: AP, lateral, oblique, and sacral radiographic images acquired of the lumbar spine. LIMITATIONS: None. FINDINGS: MINERALIZATION: Normal. SEGMENTATION: Normal. No transitional anatomy. ALIGNMENT: There is grade 1-2 anterolisthesis of L4 on L5. VERTEBRAE: Maintained height. No fracture or worrisome bone lesion. DISCS: There is disc space narrowing at L4-L5 and L5-S1. POSTERIOR ELEMENTS: There is posterior element hypertrophy at L4-L5 and L5-S1. HARDWARE: None in the spine. PARASPINAL SOFT TISSUES: Normal. PELVIS: Intact as visualized. No fractures or worrisome bone lesions. SI joints intact. OTHER: No other significant finding. IMPRESSION: Grade 1-2 anterolisthesis of L4 on L5 with posterior element hypertrophy at L4-L5 and L5 -S1. There is disc space narrowing at the same 2 levels. TECHNICAL DOCUMENTATION: JOB ID: [id number] [employer]- All Rights Reserved Reading location - IP/workstation name: [email or web address]
[2018-01-10 17:12] LABS: ABSOLUTE EOSINOPHILS # (AUTO) 0.1 10^3/uL (0.0-0.6); ABSOLUTE LYMPHOCYTES (AUTO) 1.9 10^3/uL (0.5-4.7); ABSOLUTE MONOCYTES (AUTO) 0.7 10^3/uL (0.1-1.4); ABSOLUTE NEUT (AUTO) 5.5 10^3/uL (1.7-8.2); BASOPHILS % (AUTO) 0.3 % (0-2); EOSINOPHILS % (AUTO) 1.7 % (0-6); HEMATOCRIT 23.9 % (36.0-47.0); HEMOGLOBIN 8.2 g/dL (12.0-15.5); LYMPHOCYTES % (AUTO) 23.3 % (13-45); MEAN CORPUSCULAR HEMOGLOBIN 26.9 pg (27.0-33.4); MEAN CORPUSCULAR HGB CONC 34.3 g/dL (32.0-36.0); MEAN CORPUSCULAR VOLUME 79 fl (80-97); MONOCYTES % (AUTO) 8.6 % (3-13); PLATELET COUNT 216 10^3/uL (150-450); RED BLOOD COUNT 3.04 10^6/uL (3.72-5.28); RED CELL DISTRIBUTION WIDTH 16.1 % (11.5-14.0); SEGMENTED NEUTROPHILS % (AUTO) 66.1 % (42-78); TOTAL CELLS COUNTED % (AUTO) 100 %; WHITE BLOOD COUNT 8.3 10^3/uL (4.0-10.5)
[2018-01-10] MEDS ORDERED: NORMAL SALINE IV ONE (17:30)
[2018-01-10] MEDS ORDERED: DESMOPRESSIN ACETATE IV ONE (17:30)
--- NOTE | 2018-01-10 17:48 | PDOC PROGRESS REPORT ---
Subjective Progress Note for:: 01/10/18 Subjective:: Ms. Sanches was admitted for GI bleed. Patient just had EGD and colonoscopy yesterday. EGD showed duodenitis and colonoscopy revealed diverticulosis with diverticular bleeding. On encounter, patient appears comfortable. Denies nausea, hematemesis. She complains of mild hypogastric discomfort. Patient had an episode of hematochezia around 2 pm. Reason For Visit: GI BLEED Physical Exam Vital Signs: Temp Pulse Resp BP Pulse Ox 99.0 F 92 18 108/65 100 01/10/18 15:27 01/10/18 15:27 01/10/18 15:27 01/10/18 15:27 01/10/18 15:27 Intake & Output 01/09/18 01/10/18 01/11/18 06:59 06:59 06:59 Intake Total 1900 3550 350 Balance 1900 3550 350 Weight 207 lb 14.334 oz General appearance: PRESENT: no acute distress, well-developed, well-nourished Head exam: PRESENT: atraumatic, normocephalic Eye exam: PRESENT: conjunctiva pink, EOMI, PERRLA. ABSENT: scleral icterus Mouth exam: PRESENT: moist, tongue midline Neck exam: ABSENT: carotid bruit, JVD, lymphadenopathy, thyromegaly Respiratory exam: PRESENT: clear to auscultation isaac. ABSENT: rales, rhonchi, wheezes Cardiovascular exam: PRESENT: RRR. ABSENT: diastolic murmur, rubs, systolic murmur GI/Abdominal exam: PRESENT: normal bowel sounds, soft, tenderness - Mild left and right lower quadrant direct tenderness, negative rebound tenderness. ABSENT : distended, guarding, mass, organolmegaly, rebound Rectal exam: PRESENT: deferred Musculoskeletal exam: PRESENT: ambulatory Neurological exam: PRESENT: alert, awake, oriented to person, oriented to place , oriented to time, oriented to situation, CN II-XII grossly intact Results Laboratory Results: 01/10/18 17:05 01/10/18 10:44 01/09/18 01/10/18 01/10/18 21:45 01:08 09:18 WBC 13.2 H Cancelled RBC 3.49 L Cancelled Hgb 9.3 L Cancelled Hct 27.3 L Cancelled MCV 78 L Cancelled MCH 26.6 L Cancelled MCHC 34.0 Cancelled RDW 16.0 H Cancelled Plt Count 195 Cancelled Seg Neutrophils % Lymphocytes % Monocytes % Eosinophils % Basophils % Absolute Neutrophils Absolute Lymphocytes Absolute Monocytes Absolute Eosinophils Absolute Basophils Sodium 138.9 Potassium 2.9 L* Chloride 110 H Carbon Dioxide 22 Anion Gap 7 BUN 3 L Creatinine 0.61 Est GFR ( Amer) > 60 Est GFR (Non-Af Amer) > 60 Glucose 131 H Calcium 7.4 L 01/10/18 01/10/18 01/10/18 10:44 10:44 17:05 WBC 8.5 8.3 RBC 3.46 L 3.04 L Hgb 9.3 L 8.2 L Hct 27.1 L 23.9 L MCV 78 L 79 L MCH 26.8 L 26.9 L MCHC 34.2 34.3 RDW 16.0 H 16.1 H Plt Count 210 216 Seg Neutrophils % 66.1 Lymphocytes % 23.3 Monocytes % 8.6 Eosinophils % 1.7 Basophils % 0.3 Absolute Neutrophils 5.5 Absolute Lymphocytes 1.9 Absolute Monocytes 0.7 Absolute Eosinophils 0.1 Absolute Basophils 0.0 Sodium Potassium 3.3 L Chloride Carbon Dioxide Anion Gap BUN Creatinine Est GFR ( Amer) Est GFR (Non-Af Amer) Glucose Calcium Impressions: Lumbar Spine X-Ray 01/10/18 00:00 IMPRESSION: Grade 1-2 anterolisthesis of L4 on L5 with posterior element hypertrophy at L4-L5 and L5-S1. There is disc space narrowing at the same 2 levels. Assessment & Plan - Diagnosis (1) Anemia Qualifiers: Anemia type: other cause Other causes of anemia: acute posthemorrhagic Qualified Code(s): D62 - Acute posthemorrhagic anemia Is this a current diagnosis for this admission?: Yes Plan: Anemia secondary to GI bleed. Patient's recent hemoglobin dropped to 8.3 from 9.4. Surgery was made aware of hemoglobin drop and has recommended desmopressin and FFP transfusion. Will continue to monitor H&H. (2) Acute gastrointestinal hemorrhage Is this a current diagnosis for this admission?: Yes Plan: EGD showed duodenitis and micro ulcerations. Colonoscopy did reveal diffuse diverticulosis and diverticular bleeding. Patient was also noted to have a cecal polyp and had polypectomy. Surgery following and has recommended desmopressin and FFP transfusion as mentioned in #1. (3) Chronic low back pain Qualifiers: Back pain laterality: unspecified Sciatica presence: unspecified whether sciatica present Qualified Code(s): M54.5 - Low back pain; G89.29 - Other chronic pain; G89.29 - Other chronic pain Is this a current diagnosis for this admission?: Yes Plan: Patient has been started on Neurontin for lumbar pain. Will order a lumbar x- ray to further assess the back pain. - Time Time Spent with patient: 25-34 minutes
[2018-01-10] MEDS ORDERED: NORMAL SALINE 250 ML IV PRN (18:40)
[2018-01-10] MEDS ORDERED: GLUCAGON,HUMAN RECOMB 1 MG INJ SUBCUT PRN (19:25)
[2018-01-10] MEDS ORDERED: DEXTROSE 50%-WATER 25 GM/50 ML DISP.SYRIN IV PRN ×2 (19:25)
[2018-01-10] MEDS ORDERED: DEXTROSE 40% GEL 15 GM TUBE PO PRN ×2 (19:25)
[2018-01-10] MEDS ORDERED: LORAZEPAM INJ 2 MG/1 ML VIAL IV ONE (19:45)
[2018-01-10 23:00] LABS: HEMATOCRIT 21.7 % (36.0-47.0); MEAN CORPUSCULAR HEMOGLOBIN 27.6 pg (27.0-33.4); MEAN CORPUSCULAR HGB CONC 35.3 g/dL (32.0-36.0); MEAN CORPUSCULAR VOLUME 78 fl (80-97); PLATELET COUNT 194 10^3/uL (150-450); RED BLOOD COUNT 2.77 10^6/uL (3.72-5.28); RED CELL DISTRIBUTION WIDTH 15.7 % (11.5-14.0); WHITE BLOOD COUNT 9.4 10^3/uL (4.0-10.5)
[2018-01-10 23:02] LABS: HEMOGLOBIN 7.7 g/dL (12.0-15.5)
--- NOTE | 2018-01-10 23:52 | RADIOLOGY REPORT (SQ) ---
EXAM DESCRIPTION: NM GASTROINTESTINAL BLEEDING COMPLETED DATE/TME: 01/10/2018 00:00 CLINICAL HISTORY: 58 years, Female, active GI bleed COMPARISON: None. RADIONUCLIDE AND DOSE: 22.9 mCi Tc99m RBC TECHNIQUE/limitation: 152 dynamic images provided. Anterior flow images obtained labeled 31 to 119. 60 min lateral abdomen provided. FINDINGS: No focal radiotracer accumulation identified. IMPRESSION: No active GI bleed discerned. The results of the examination have been personally discussed with the referring health care provider, Dr. Obrien immediately following interpretation of the examination on 01/10/2018 10:42 PM CDT.
[2018-01-11] MEDS: SUCRALFATE 1 GM TABLET PO SCH ×5 (00:23→23:58)
[2018-01-11] MEDS: HYDROMORPHONE HCL INJ/PF 2 MG/ML AMPULE IV PRN ×4 (02:04→21:08)
[2018-01-11] MEDS: METRONIDAZOLE 500 MG/NS RTU 500 MG/100 ML RTUPB IV SCH ×3 (05:24→21:23)
[2018-01-11] MEDS: DEXTROSE 10%-WATER 1,000 ML IV PRN (05:24)
[2018-01-11 05:26] LABS: HEMATOCRIT 21.2 % (36.0-47.0); MEAN CORPUSCULAR HEMOGLOBIN 27.2 pg (27.0-33.4); MEAN CORPUSCULAR HGB CONC 34.8 g/dL (32.0-36.0); MEAN CORPUSCULAR VOLUME 78 fl (80-97); PLATELET COUNT 201 10^3/uL (150-450); RED BLOOD COUNT 2.72 10^6/uL (3.72-5.28); RED CELL DISTRIBUTION WIDTH 15.8 % (11.5-14.0); WHITE BLOOD COUNT 8.2 10^3/uL (4.0-10.5)
[2018-01-11 05:28] LABS: HEMOGLOBIN 7.4 g/dL (12.0-15.5)
[2018-01-11] MEDS: POTASSIUM CHLORIDE 20 MEQ/50 ML RTU IV SCH ×3 (09:21→22:25)
[2018-01-11] MEDS: PANTOPRAZOLE SODIUM 40 MG VIAL IV SCH ×2 (09:21→21:22)
[2018-01-11 11:19] LABS: HEMATOCRIT 22.3 % (36.0-47.0); MEAN CORPUSCULAR HEMOGLOBIN 26.9 pg (27.0-33.4); MEAN CORPUSCULAR VOLUME 79 fl (80-97); PLATELET COUNT 206 10^3/uL (150-450); RED BLOOD COUNT 2.82 10^6/uL (3.72-5.28); RED CELL DISTRIBUTION WIDTH 15.7 % (11.5-14.0)
[2018-01-11 11:22] LABS: HEMOGLOBIN 7.6 g/dL (12.0-15.5)
--- NOTE | 2018-01-11 12:37 | PDOC PROGRESS REPORT ---
Subjective Progress Note for:: 01/11/18 Subjective:: comfortable, only on very small stool with small clot this AM Reason For Visit: HEMATOCHEZIA, HYPOKALEMIA Physical Exam Vital Signs: Temp Pulse Resp BP Pulse Ox 98.6 F 82 8 L 124/89 H 100 01/11/18 12:00 01/11/18 08:39 01/11/18 12:00 01/11/18 11:40 01/11/18 12:00 Intake & Output 01/10/18 01/11/18 01/12/18 06:59 06:59 06:59 Intake Total 3550 3558 50 Output Total 1100 400 Balance 3550 2458 -350 Weight 94.3 kg 89.8 kg General appearance: PRESENT: no acute distress Respiratory exam: PRESENT: clear to auscultation isaac Cardiovascular exam: PRESENT: RRR GI/Abdominal exam: PRESENT: soft Results Laboratory Results: 01/11/18 11:07 01/10/18 10:44 01/10/18 01/10/18 01/11/18 17:05 22:52 05:05 WBC 8.3 9.4 8.2 RBC 3.04 L 2.77 L 2.72 L Hgb 8.2 L 7.7 L 7.4 L Hct 23.9 L 21.7 L 21.2 L MCV 79 L 78 L 78 L MCH 26.9 L 27.6 27.2 MCHC 34.3 35.3 34.8 RDW 16.1 H 15.7 H 15.8 H Plt Count 216 194 201 Seg Neutrophils % 66.1 Lymphocytes % 23.3 Monocytes % 8.6 Eosinophils % 1.7 Basophils % 0.3 Absolute Neutrophils 5.5 Absolute Lymphocytes 1.9 Absolute Monocytes 0.7 Absolute Eosinophils 0.1 Absolute Basophils 0.0 01/11/18 11:07 WBC 7.0 RBC 2.82 L Hgb 7.6 L Hct 22.3 L MCV 79 L MCH 26.9 L MCHC 34.0 RDW 15.7 H Plt Count 206 Seg Neutrophils % Lymphocytes % Monocytes % Eosinophils % Basophils % Absolute Neutrophils Absolute Lymphocytes Absolute Monocytes Absolute Eosinophils Absolute Basophils Impressions: GI Bleed Scan Nuclear Medicine 01/10/18 00:00 IMPRESSION: No active GI bleed discerned. The results of the examination have been personally discussed with the referring health care provider, Dr. Obrien immediately following interpretation of the examination on 01/10/2018 10:42 PM CDT. Lumbar Spine X-Ray 01/10/18 00:00 IMPRESSION: Grade 1-2 anterolisthesis of L4 on L5 with posterior element hypertrophy at L4-L5 and L5-S1. There is disc space narrowing at the same 2 levels. Assessment & Plan - Diagnosis (1) Antritis of stomach Is this a current diagnosis for this admission?: Yes (2) Diverticular hemorrhage Is this a current diagnosis for this admission?: Yes - Plan Summary Plan Summary: A/ HD #3 H/H stable since yesterday evening only blood small blood movement this AM with clot only VSS Abdomen soft Bleeding scan negative; last nght, indicating a low rate colonic diverticular bleeding NSAID abuse Diverticular bleeding secondary to severe diverticular disease of the entire colon and Naproxin abuse for postop pain control. P/ No intervention planned in this patient at this time as the diverticular bleeding has slowed down and possibly stopped after platelet and DDAVP administration yesterday which has probably controlled the NSAIDs induced platelet dysfunction. Sips of water Further diet advancement tomorrow
[2018-01-11] MEDS: LEVOFLOXACIN 500 MG/D5W RTU 500 MG/100 ML RTUPB IV SCH (14:01)
[2018-01-11] MEDS: NORMAL SALINE 1000 ML 1,000 ML IV PRN (14:01)
[2018-01-11 15:55] LABS: HEMATOCRIT 22.9 % (36.0-47.0); MEAN CORPUSCULAR HEMOGLOBIN 26.8 pg (27.0-33.4); MEAN CORPUSCULAR HGB CONC 33.6 g/dL (32.0-36.0); MEAN CORPUSCULAR VOLUME 80 fl (80-97); PLATELET COUNT 224 10^3/uL (150-450); RED BLOOD COUNT 2.88 10^6/uL (3.72-5.28); RED CELL DISTRIBUTION WIDTH 15.9 % (11.5-14.0); WHITE BLOOD COUNT 7.7 10^3/uL (4.0-10.5)
[2018-01-11 16:03] LABS: HEMOGLOBIN 7.7 g/dL (12.0-15.5)
[2018-01-11 16:13] LABS: ANION GAP 7 (5-19); CALCIUM 7.7 mg/dL (8.4-10.2); CARBON DIOXIDE 26 mmol/L (22-30); CHLORIDE 102 mmol/L (98-107); GLUCOSE 112 mg/dL (75-110); POTASSIUM 3.3 mmol/L (3.6-5.0); SODIUM 134.6 mmol/L (137-145)
[2018-01-11 16:15] LABS: BLOOD UREA NITROGEN < 2 mg/dL (7-20)
--- NOTE | 2018-01-11 17:26 | PDOC PROGRESS REPORT ---
Subjective Progress Note for:: 01/11/18 Subjective:: Ms. Sanches was admitted for GI bleed. Patient just had EGD and colonoscopy yesterday. EGD showed duodenitis and colonoscopy revealed diverticulosis with diverticular bleeding. No acute event overnight. Upon encountered this morning, patient has not had a bowel movement or recurrence of hematochezia. Says she feels much better today and that the abdominal pain is much better Reason For Visit: HEMATOCHEZIA, HYPOKALEMIA Physical Exam Vital Signs: Temp Pulse Resp BP Pulse Ox 98.6 F 82 11 L 131/63 H 100 01/11/18 16:00 01/11/18 08:39 01/11/18 16:00 01/11/18 15:35 01/11/18 16:00 Intake & Output 01/10/18 01/11/18 01/12/18 06:59 06:59 06:59 Intake Total 3550 3558 1000 Output Total 1100 1000 Balance 3550 2458 0 Weight 207 lb 14.334 oz 197 lb 15.602 oz General appearance: PRESENT: no acute distress, well-developed, well-nourished Eye exam: PRESENT: conjunctiva pink, EOMI, PERRLA. ABSENT: scleral icterus Ear exam: PRESENT: normal external ear exam Mouth exam: PRESENT: moist, tongue midline Neck exam: ABSENT: carotid bruit, JVD, lymphadenopathy, thyromegaly Respiratory exam: PRESENT: clear to auscultation isaac. ABSENT: rales, rhonchi, wheezes Cardiovascular exam: PRESENT: RRR. ABSENT: diastolic murmur, rubs, systolic murmur Pulses: PRESENT: normal dorsalis pedis pul GI/Abdominal exam: PRESENT: normal bowel sounds, soft, tenderness - Very minimal direct tenderness on the lower quadrants. ABSENT: distended, guarding, mass, organolmegaly, rebound Rectal exam: PRESENT: deferred Neurological exam: PRESENT: alert, awake, oriented to person, oriented to place , oriented to time, oriented to situation, CN II-XII grossly intact Results Laboratory Results: 01/11/18 15:41 01/11/18 15:41 01/10/18 01/11/18 01/11/18 22:52 05:05 11:07 WBC 9.4 8.2 7.0 RBC 2.77 L 2.72 L 2.82 L Hgb 7.7 L 7.4 L 7.6 L Hct 21.7 L 21.2 L 22.3 L MCV 78 L 78 L 79 L MCH 27.6 27.2 26.9 L MCHC 35.3 34.8 34.0 RDW 15.7 H 15.8 H 15.7 H Plt Count 194 201 206 Sodium Potassium Chloride Carbon Dioxide Anion Gap BUN Creatinine Est GFR ( Amer) Est GFR (Non-Af Amer) Glucose Calcium 01/11/18 01/11/18 15:41 15:41 WBC 7.7 RBC 2.88 L Hgb 7.7 L Hct 22.9 L MCV 80 MCH 26.8 L MCHC 33.6 RDW 15.9 H Plt Count 224 Sodium 134.6 L Potassium 3.3 L Chloride 102 Carbon Dioxide 26 Anion Gap 7 BUN < 2 L Creatinine 0.56 Est GFR ( Amer) > 60 Est GFR (Non-Af Amer) > 60 Glucose 112 H Calcium 7.7 L Impressions: GI Bleed Scan Nuclear Medicine 01/10/18 00:00 IMPRESSION: No active GI bleed discerned. The results of the examination have been personally discussed with the referring health care provider, Dr. Obrien immediately following interpretation of the examination on 01/10/2018 10:42 PM CDT. Lumbar Spine X-Ray 01/10/18 00:00 IMPRESSION: Grade 1-2 anterolisthesis of L4 on L5 with posterior element hypertrophy at L4-L5 and L5-S1. There is disc space narrowing at the same 2 levels. Assessment & Plan - Diagnosis (1) Anemia Qualifiers: Anemia type: other cause Other causes of anemia: acute posthemorrhagic Qualified Code(s): D62 - Acute posthemorrhagic anemia Is this a current diagnosis for this admission?: Yes Plan: Anemia secondary to GI bleed. She is hemoglobin has been stable overnight. She had FFP, platelets and DDAVP transfusion last night and is seemed to help stop the bleeding. We will continue to monitor H&H and monitor for clinical signs of bleeding. (2) Acute gastrointestinal hemorrhage Is this a current diagnosis for this admission?: Yes Plan: EGD showed duodenitis and micro ulcerations. Colonoscopy did reveal diffuse diverticulosis and diverticular bleeding. Patient was also noted to have a cecal polyp and had polypectomy. Plan as mentioned in #1. Surgery following. (3) Chronic low back pain Qualifiers: Back pain laterality: unspecified Sciatica presence: unspecified whether sciatica present Qualified Code(s): M54.5 - Low back pain; G89.29 - Other chronic pain; G89.29 - Other chronic pain Is this a current diagnosis for this admission?: Yes Plan: Patient has been started on Neurontin for lumbar pain. Lumbar x-ray showed L4- L5 grade 1-2 anterolisthesis. Her back pain is fairly controlled with Neurontin. Will consult pain management for further recommendations. - Time Time Spent with patient: 25-34 minutes
[2018-01-11 23:41] LABS: HEMATOCRIT 22.1 % (36.0-47.0); MEAN CORPUSCULAR HEMOGLOBIN 27.4 pg (27.0-33.4); MEAN CORPUSCULAR HGB CONC 34.7 g/dL (32.0-36.0); MEAN CORPUSCULAR VOLUME 79 fl (80-97); PLATELET COUNT 231 10^3/uL (150-450); RED BLOOD COUNT 2.79 10^6/uL (3.72-5.28); RED CELL DISTRIBUTION WIDTH 15.8 % (11.5-14.0); WHITE BLOOD COUNT 7.1 10^3/uL (4.0-10.5)
[2018-01-11 23:48] LABS: HEMOGLOBIN 7.6 g/dL (12.0-15.5)
[2018-01-12] MEDS: POTASSIUM CHLORIDE 20 MEQ/50 ML RTU IV SCH (00:29)
[2018-01-12] MEDS: ONDANSETRON HCL INJ/PF 4 MG/2 ML SDV IV PRN (03:14)
[2018-01-12] MEDS: HYDROMORPHONE HCL INJ/PF 2 MG/ML AMPULE IV PRN ×4 (03:15→23:23)
[2018-01-12] MEDS: NORMAL SALINE 1000 ML 1,000 ML IV PRN ×2 (03:20→13:49)
[2018-01-12 04:36] LABS: HEMATOCRIT 21.1 % (36.0-47.0); MEAN CORPUSCULAR HEMOGLOBIN 26.8 pg (27.0-33.4); MEAN CORPUSCULAR HGB CONC 34.1 g/dL (32.0-36.0); MEAN CORPUSCULAR VOLUME 78 fl (80-97); PLATELET COUNT 230 10^3/uL (150-450); RED BLOOD COUNT 2.69 10^6/uL (3.72-5.28); RED CELL DISTRIBUTION WIDTH 15.7 % (11.5-14.0); WHITE BLOOD COUNT 6.7 10^3/uL (4.0-10.5)
[2018-01-12 04:42] LABS: ANION GAP 9 (5-19); CARBON DIOXIDE 24 mmol/L (22-30); CHLORIDE 105 mmol/L (98-107); GLUCOSE 112 mg/dL (75-110); HEMOGLOBIN 7.2 g/dL (12.0-15.5); POTASSIUM 3.7 mmol/L (3.6-5.0)
[2018-01-12 04:47] LABS: CALCIUM 7.3 mg/dL (8.4-10.2)
[2018-01-12] MEDS ORDERED: IRON SUCROSE COMPLEX INJ/PF 100 MG/5 ML SDV IV ONE (05:25)
[2018-01-12] MEDS: SUCRALFATE 1 GM TABLET PO SCH ×3 (05:47→17:53)
[2018-01-12] MEDS: METRONIDAZOLE 500 MG/NS RTU 500 MG/100 ML RTUPB IV SCH ×3 (05:47→23:22)
[2018-01-12 06:04] LABS: RETICULOCYTE COUNT (AUTO) 2.63 % (0.66-2.85)
[2018-01-12 06:17] LABS: BLOOD UREA NITROGEN < 2 mg/dL (7-20)
[2018-01-12 06:22] LABS: IRON(TIBC) 10.2 ug/dL (37-170)
[2018-01-12] MEDS ORDERED: MAGNESIUM SULFATE/D5W 1 GM/100 ML RTUPB IV ONE (06:29)
[2018-01-12] MEDS: MAGNESIUM SULFATE 1 GM/D5W 100 ML IV SCH ×2 (06:40→07:26)
[2018-01-12] MEDS: PANTOPRAZOLE SODIUM 40 MG VIAL IV SCH ×2 (09:06→23:21)
[2018-01-12] MEDS: LEVOFLOXACIN 500 MG/D5W RTU 500 MG/100 ML RTUPB IV SCH (13:43)
--- NOTE | 2018-01-12 13:51 | PDOC PROGRESS REPORT ---
Subjective Progress Note for:: 01/12/18 Subjective:: This is a 58-year-old female with rectal bleeding. She is status post EGD and colonoscopy. Is found to have significant diverticulosis throughout the colon, however no obvious/active bleeding could be identified. The patient reports feeling somewhat better today. She is last weak on previous days. The patient has not been out of bed much. Her last bowel movement was last night, and it was maroon (old blood). The patient denies chest pain, shortness of breath, headache, dizziness, nausea, vomiting, fevers, chills. She does report occasional abdominal cramping, but it is improved from previous. Reason For Visit: HEMATOCHEZIA, HYPOKALEMIA Physical Exam Vital Signs: Temp Pulse Resp BP Pulse Ox 98.2 F 85 14 127/82 H 99 01/12/18 12:52 01/12/18 12:52 01/12/18 12:52 01/12/18 12:52 01/12/18 12:52 Intake & Output 01/11/18 01/12/18 01/13/18 06:59 06:59 06:59 Intake Total 3558 2300 200 Output Total 1100 2100 1450 Balance 2458 200 -1250 Weight 89.8 kg 93.2 kg General appearance: PRESENT: no acute distress Head exam: PRESENT: atraumatic, normocephalic Eye exam: PRESENT: EOMI, PERRLA. ABSENT: scleral icterus Teeth exam: ABSENT: poor dentation Neck exam: ABSENT: meningismus, tenderness, thyromegaly, tracheal deviation Respiratory exam: PRESENT: clear to auscultation isaac. ABSENT: chest wall tenderness, rhonchi, wheezes Cardiovascular exam: PRESENT: RRR Pulses: PRESENT: normal radial pulses Vascular exam: PRESENT: pallor GI/Abdominal exam: PRESENT: soft. ABSENT: distended, tenderness Rectal exam: PRESENT: deferred Extremities exam: ABSENT: clubbing, pedal edema Musculoskeletal exam: PRESENT: normal inspection Neurological exam: PRESENT: alert, awake, oriented to person, oriented to place , oriented to time, oriented to situation, CN II-XII grossly intact Psychiatric exam: PRESENT: anxious. ABSENT: agitated, depressed Focused psych exam: ABSENT: delusional Skin exam: PRESENT: pallor. ABSENT: cyanosis, erythema, jaundice Results Laboratory Results: 01/12/18 04:04 01/12/18 04:04 01/11/18 01/11/18 01/11/18 15:41 15:41 23:26 WBC 7.7 7.1 RBC 2.88 L 2.79 L Hgb 7.7 L 7.6 L Hct 22.9 L 22.1 L MCV 80 79 L MCH 26.8 L 27.4 MCHC 33.6 34.7 RDW 15.9 H 15.8 H Plt Count 224 231 Retic Count (auto) Absolute Retic Sodium 134.6 L Potassium 3.3 L Chloride 102 Carbon Dioxide 26 Anion Gap 7 BUN < 2 L Creatinine 0.56 Est GFR ( Amer) > 60 Est GFR (Non-Af Amer) > 60 Glucose 112 H Calcium 7.7 L Magnesium Iron TIBC % Saturation Ferritin Vitamin B12 Folate Blood Type Antibody Screen 01/12/18 01/12/18 01/12/18 04:04 04:04 04:04 WBC 6.7 RBC 2.69 L Hgb 7.2 L Hct 21.1 L MCV 78 L MCH 26.8 L MCHC 34.1 RDW 15.7 H Plt Count 230 Retic Count (auto) 2.63 Absolute Retic 0.070 Sodium 138.0 Potassium 3.7 Chloride 105 Carbon Dioxide 24 Anion Gap 9 BUN < 2 L Creatinine 0.59 Est GFR ( Amer) > 60 Est GFR (Non-Af Amer) > 60 Glucose 112 H Calcium 7.3 L Magnesium 1.2 L* Iron TIBC % Saturation Ferritin Vitamin B12 Folate Blood Type Antibody Screen 01/12/18 01/12/18 04:04 10:15 WBC RBC Hgb Hct MCV MCH MCHC RDW Plt Count Retic Count (auto) Absolute Retic Sodium Potassium Chloride Carbon Dioxide Anion Gap BUN Creatinine Est GFR ( Amer) Est GFR (Non-Af Amer) Glucose Calcium Magnesium Iron 10.2 L TIBC 230 L % Saturation 4 Ferritin 41.30 Vitamin B12 755.0 Folate 12.60 Blood Type O POSITIVE Antibody Screen NEGATIVE Impressions: GI Bleed Scan Nuclear Medicine 01/10/18 00:00 IMPRESSION: No active GI bleed discerned. The results of the examination have been personally discussed with the referring health care provider, Dr. Salero immediately following interpretation of the examination on 01/10/2018 10:42 PM CDT. Lumbar Spine X-Ray 01/10/18 00:00 IMPRESSION: Grade 1-2 anterolisthesis of L4 on L5 with posterior element hypertrophy at L4-L5 and L5-S1. There is disc space narrowing at the same 2 levels. Assessment & Plan - Diagnosis (1) Acute gastrointestinal hemorrhage Is this a current diagnosis for this admission?: Yes - Plan Summary Plan Summary: This is a 58-year-old female with lower GI bleeding. She is status post EGD and colonoscopy. No active bleeding could be identified on the colonoscopy. The patient does have a small amount of gastritis, but no bleeding was noted from the stomach. Patient's hemoglobin has been relatively stable overnight. She did have another maroon/dark bowel movement last night. No bowel movements yet today. Continue to monitor the patient closely. The patient's bleeding scan was negative for active hemorrhage. Fortunately, most diverticular bleeds will resolve on their own. I will continue to follow this patient very closely with you, in case surgical intervention is necessary.
[2018-01-12 16:34] LABS: ABSOLUTE EOSINOPHILS # (AUTO) 0.1 10^3/uL (0.0-0.6); ABSOLUTE LYMPHOCYTES (AUTO) 1.6 10^3/uL (0.5-4.7); ABSOLUTE MONOCYTES (AUTO) 0.9 10^3/uL (0.1-1.4); ABSOLUTE NEUT (AUTO) 6.8 10^3/uL (1.7-8.2); BASOPHILS % (AUTO) 0.4 % (0-2); EOSINOPHILS % (AUTO) 1.1 % (0-6); HEMATOCRIT 24.2 % (36.0-47.0); HEMOGLOBIN 8.1 g/dL (12.0-15.5); LYMPHOCYTES % (AUTO) 17.1 % (13-45); MEAN CORPUSCULAR HEMOGLOBIN 26.6 pg (27.0-33.4); MEAN CORPUSCULAR HGB CONC 33.7 g/dL (32.0-36.0); MEAN CORPUSCULAR VOLUME 79 fl (80-97); MONOCYTES % (AUTO) 9.7 % (3-13); PLATELET COUNT 239 10^3/uL (150-450); RED BLOOD COUNT 3.06 10^6/uL (3.72-5.28); RED CELL DISTRIBUTION WIDTH 15.7 % (11.5-14.0); SEGMENTED NEUTROPHILS % (AUTO) 71.7 % (42-78); TOTAL CELLS COUNTED % (AUTO) 100 %; WHITE BLOOD COUNT 9.5 10^3/uL (4.0-10.5)
--- NOTE | 2018-01-12 18:41 | PDOC PROGRESS REPORT ---
Subjective Progress Note for:: 01/12/18 Subjective:: Ms. Sanches was admitted for GI bleed. Patient just had EGD and colonoscopy yesterday. EGD showed duodenitis and colonoscopy revealed diverticulosis with diverticular bleeding. No acute event overnight. Patient did have one episode of slightly bright red bloody BM last night. She says her abdominal pain is much better today. No nausea or vomiting. Reason For Visit: HEMATOCHEZIA, HYPOKALEMIA Physical Exam Vital Signs: Temp Pulse Resp BP Pulse Ox 98.4 F 83 17 126/82 H 100 01/12/18 16:00 01/12/18 13:52 01/12/18 16:00 01/12/18 14:54 01/12/18 16:00 Intake & Output 01/11/18 01/12/18 01/13/18 06:59 06:59 06:59 Intake Total 3558 2300 1730 Output Total 1100 2100 2100 Balance 2458 200 -370 Weight 197 lb 15.602 oz 205 lb 7.533 oz General appearance: PRESENT: no acute distress, well-developed, well-nourished Eye exam: PRESENT: conjunctiva pink, EOMI, PERRLA. ABSENT: scleral icterus Ear exam: PRESENT: normal external ear exam Respiratory exam: PRESENT: clear to auscultation isaac. ABSENT: rales, rhonchi, wheezes Cardiovascular exam: PRESENT: RRR. ABSENT: diastolic murmur, rubs, systolic murmur Pulses: PRESENT: normal dorsalis pedis pul GI/Abdominal exam: PRESENT: normal bowel sounds, soft. ABSENT: distended, guarding, mass, organolmegaly, rebound Rectal exam: PRESENT: deferred Neurological exam: PRESENT: alert, awake, oriented to person, oriented to place , oriented to time, oriented to situation, CN II-XII grossly intact. ABSENT: motor sensory deficit Results Laboratory Results: 01/12/18 16:15 01/12/18 04:04 01/11/18 01/12/18 01/12/18 23:26 04:04 04:04 WBC 7.1 6.7 RBC 2.79 L 2.69 L Hgb 7.6 L 7.2 L Hct 22.1 L 21.1 L MCV 79 L 78 L MCH 27.4 26.8 L MCHC 34.7 34.1 RDW 15.8 H 15.7 H Plt Count 231 230 Seg Neutrophils % Lymphocytes % Monocytes % Eosinophils % Basophils % Absolute Neutrophils Absolute Lymphocytes Absolute Monocytes Absolute Eosinophils Absolute Basophils Retic Count (auto) Absolute Retic Sodium 138.0 Potassium 3.7 Chloride 105 Carbon Dioxide 24 Anion Gap 9 BUN < 2 L Creatinine 0.59 Est GFR ( Amer) > 60 Est GFR (Non-Af Amer) > 60 Glucose 112 H Calcium 7.3 L Magnesium 1.2 L* Iron TIBC % Saturation Ferritin Vitamin B12 Folate Blood Type Antibody Screen 01/12/18 01/12/18 01/12/18 04:04 04:04 10:15 WBC RBC Hgb Hct MCV MCH MCHC RDW Plt Count Seg Neutrophils % Lymphocytes % Monocytes % Eosinophils % Basophils % Absolute Neutrophils Absolute Lymphocytes Absolute Monocytes Absolute Eosinophils Absolute Basophils Retic Count (auto) 2.63 Absolute Retic 0.070 Sodium Potassium Chloride Carbon Dioxide Anion Gap BUN Creatinine Est GFR ( Amer) Est GFR (Non-Af Amer) Glucose Calcium Magnesium Iron 10.2 L TIBC 230 L % Saturation 4 Ferritin 41.30 Vitamin B12 755.0 Folate 12.60 Blood Type O POSITIVE Antibody Screen NEGATIVE 01/12/18 01/12/18 16:15 16:15 WBC 9.5 RBC 3.06 L Hgb 8.1 L Hct 24.2 L MCV 79 L MCH 26.6 L MCHC 33.7 RDW 15.7 H Plt Count 239 Seg Neutrophils % 71.7 Lymphocytes % 17.1 Monocytes % 9.7 Eosinophils % 1.1 Basophils % 0.4 Absolute Neutrophils 6.8 Absolute Lymphocytes 1.6 Absolute Monocytes 0.9 Absolute Eosinophils 0.1 Absolute Basophils 0.0 Retic Count (auto) Absolute Retic Sodium Potassium Chloride Carbon Dioxide Anion Gap BUN Creatinine Est GFR ( Amer) Est GFR (Non-Af Amer) Glucose Calcium Magnesium 1.8 Iron TIBC % Saturation Ferritin Vitamin B12 Folate Blood Type Antibody Screen Impressions: GI Bleed Scan Nuclear Medicine 01/10/18 00:00 IMPRESSION: No active GI bleed discerned. The results of the examination have been personally discussed with the referring health care provider, Dr. Obrien immediately following interpretation of the examination on 01/10/2018 10:42 PM CDT. Lumbar Spine X-Ray 01/10/18 00:00 IMPRESSION: Grade 1-2 anterolisthesis of L4 on L5 with posterior element hypertrophy at L4-L5 and L5-S1. There is disc space narrowing at the same 2 levels. Assessment & Plan - Diagnosis (1) Anemia Qualifiers: Anemia type: other cause Other causes of anemia: acute posthemorrhagic Qualified Code(s): D62 - Acute posthemorrhagic anemia Is this a current diagnosis for this admission?: Yes Plan: Anemia secondary to GI bleed. Patient's hemoglobin has been stable but went down to as low as 7.2. She had a very small bright red bloody BM last night. Will transfuse 1 unit of packed RBC. We will continue to monitor H&H.. (2) Acute gastrointestinal hemorrhage Is this a current diagnosis for this admission?: Yes Plan: Improved. EGD showed duodenitis and micro ulcerations. Colonoscopy did reveal diffuse diverticulosis and diverticular bleeding. Patient was also noted to have a cecal polyp and had polypectomy. Plan as mentioned in #1. Surgery following. (3) Chronic low back pain Qualifiers: Back pain laterality: unspecified Sciatica presence: unspecified whether sciatica present Qualified Code(s): M54.5 - Low back pain; G89.29 - Other chronic pain; G89.29 - Other chronic pain Is this a current diagnosis for this admission?: Yes Plan: Patient has been started on Neurontin for lumbar pain. Lumbar x-ray showed L4- L5 grade 1-2 anterolisthesis. Her back pain is fairly controlled with Neurontin. Await input from pain management for further recommendations. - Time Time Spent with patient: 15-24 minutes
[2018-01-12] MEDS ORDERED: LIDOCAINE 5% (700 MG) TRANSDERMAL ADH..PATCH TP ONE (19:50)
[2018-01-13] MEDS: SUCRALFATE 1 GM TABLET PO SCH ×4 (01:37→17:38)
[2018-01-13] MEDS: METRONIDAZOLE 500 MG/NS RTU 500 MG/100 ML RTUPB IV SCH (05:25)
[2018-01-13] MEDS: NORMAL SALINE 1000 ML 1,000 ML IV PRN ×2 (05:25→17:39)
[2018-01-13] MEDS: HYDROMORPHONE HCL INJ/PF 2 MG/ML AMPULE IV PRN (05:40)
[2018-01-13] MEDS ORDERED: MAG HYDROX/AL HYDROX/SIMETH SUSP 30 ML UDCUP PO PRN (06:30)
[2018-01-13 08:25] LABS: HEMATOCRIT 22.6 % (36.0-47.0); MEAN CORPUSCULAR HEMOGLOBIN 26.9 pg (27.0-33.4); MEAN CORPUSCULAR VOLUME 79 fl (80-97); PLATELET COUNT 254 10^3/uL (150-450); RED BLOOD COUNT 2.85 10^6/uL (3.72-5.28); RED CELL DISTRIBUTION WIDTH 16.2 % (11.5-14.0); WHITE BLOOD COUNT 8.9 10^3/uL (4.0-10.5)
[2018-01-13] MEDS: ONDANSETRON HCL INJ/PF 4 MG/2 ML SDV IV PRN (08:28)
[2018-01-13 08:35] LABS: HEMOGLOBIN 7.7 g/dL (12.0-15.5)
[2018-01-13] MEDS: PANTOPRAZOLE SODIUM 40 MG VIAL IV SCH (09:46)
[2018-01-13] MEDS ORDERED: LIDOCAINE 2% VISCOUS SOLN 20 ML UDCUP PO ONE (09:53)
[2018-01-13] MEDS ORDERED: MAG HYDROX/AL HYDROX/SIMETH SUSP 30 ML UDCUP PO ONE (09:53)
[2018-01-13] MEDS ORDERED: METOCLOPRAMIDE HCL ORAL SOLN 10 MG/10 ML UDCUP PO ONE (09:53)
--- NOTE | 2018-01-13 10:37 | PDOC PROGRESS REPORT ---
Subjective Progress Note for:: 01/13/18 Subjective:: Patient feels nauseated, feels weak. Minimal blood in bowel movement overnight. Patient remains hemodynamically stable. Reason For Visit: HEMATOCHEZIA, HYPOKALEMIA Physical Exam Vital Signs: Temp Pulse Resp BP Pulse Ox 98.7 F 85 16 107/56 L 99 01/13/18 07:38 01/13/18 07:38 01/13/18 07:38 01/13/18 07:38 01/13/18 08:47 Intake & Output 01/12/18 01/13/18 01/14/18 06:59 06:59 06:59 Intake Total 2300 2830 100 Output Total 2100 2101 Balance 200 729 100 Weight 93.2 kg 92 kg General appearance: PRESENT: mild distress GI/Abdominal exam: PRESENT: other - Abdomen soft, not distended; she flinches when the abdomen is touched, no rigidity Results Laboratory Results: 01/13/18 08:05 01/12/18 04:04 01/12/18 01/12/18 01/12/18 10:15 16:15 16:15 WBC 9.5 RBC 3.06 L Hgb 8.1 L Hct 24.2 L MCV 79 L MCH 26.6 L MCHC 33.7 RDW 15.7 H Plt Count 239 Seg Neutrophils % 71.7 Lymphocytes % 17.1 Monocytes % 9.7 Eosinophils % 1.1 Basophils % 0.4 Absolute Neutrophils 6.8 Absolute Lymphocytes 1.6 Absolute Monocytes 0.9 Absolute Eosinophils 0.1 Absolute Basophils 0.0 Magnesium 1.8 Blood Type O POSITIVE Antibody Screen NEGATIVE 01/13/18 08:05 WBC 8.9 RBC 2.85 L Hgb 7.7 L Hct 22.6 L MCV 79 L MCH 26.9 L MCHC 34.0 RDW 16.2 H Plt Count 254 Seg Neutrophils % Lymphocytes % Monocytes % Eosinophils % Basophils % Absolute Neutrophils Absolute Lymphocytes Absolute Monocytes Absolute Eosinophils Absolute Basophils Magnesium Blood Type Antibody Screen Impressions: GI Bleed Scan Nuclear Medicine 01/10/18 00:00 IMPRESSION: No active GI bleed discerned. The results of the examination have been personally discussed with the referring health care provider, Dr. Salero immediately following interpretation of the examination on 01/10/2018 10:42 PM CDT. Lumbar Spine X-Ray 01/10/18 00:00 IMPRESSION: Grade 1-2 anterolisthesis of L4 on L5 with posterior element hypertrophy at L4-L5 and L5-S1. There is disc space narrowing at the same 2 levels. Assessment & Plan - Diagnosis (1) Acute gastrointestinal hemorrhage Is this a current diagnosis for this admission?: Yes (2) Anemia Qualifiers: Anemia type: other cause Other causes of anemia: acute posthemorrhagic Qualified Code(s): D62 - Acute posthemorrhagic anemia Is this a current diagnosis for this admission?: Yes (3) Chronic low back pain Qualifiers: Back pain laterality: unspecified Sciatica presence: unspecified whether sciatica present Qualified Code(s): M54.5 - Low back pain; G89.29 - Other chronic pain; G89.29 - Other chronic pain Is this a current diagnosis for this admission?: Yes (4) Colitis Is this a current diagnosis for this admission?: Yes Plan: Status post total colonoscopy to cecum; diffuse diverticulosis likely source of bleeding; stool cultures negative. (5) Hypokalemia Is this a current diagnosis for this admission?: Yes (6) Degenerative joint disease of low back Is this a current diagnosis for this admission?: Yes
--- NOTE | 2018-01-13 10:49 | PDOC PROGRESS REPORT ---
Subjective Progress Note for:: 01/13/18 Subjective:: Ms. Sanches was admitted for GI bleed. Patient had EGD and colonoscopy showed duodenitis, antritis and microulcerations. Colonoscopy revealed diverticulosis with diverticular bleeding. No acute event overnight. She complains of epigastric discomfort. She did complain of nausea and had one episode of non-bloody, non-bilious emesis early this morning. He has not had a BM so far. He says her abdominal pain is slightly better. She does say now that aside from the recent Advil she has been taking when she came back from [place], she has been taking ibuprofen for more than 5 years daily. Reason For Visit: HEMATOCHEZIA, HYPOKALEMIA Physical Exam Vital Signs: Temp Pulse Resp BP Pulse Ox 98.7 F 85 16 107/56 L 99 01/13/18 07:38 01/13/18 07:38 01/13/18 07:38 01/13/18 07:38 01/13/18 08:47 Intake & Output 01/12/18 01/13/18 01/14/18 06:59 06:59 06:59 Intake Total 2300 2830 100 Output Total 2100 2101 Balance 200 729 100 Weight 205 lb 7.533 oz 202 lb 13.204 oz General appearance: PRESENT: no acute distress, well-developed, well-nourished Head exam: PRESENT: atraumatic, normocephalic Eye exam: PRESENT: conjunctiva pink, EOMI, PERRLA. ABSENT: scleral icterus Ear exam: PRESENT: normal external ear exam Neck exam: ABSENT: carotid bruit, JVD, lymphadenopathy, thyromegaly Respiratory exam: PRESENT: clear to auscultation isaac. ABSENT: rales, rhonchi, wheezes Cardiovascular exam: PRESENT: RRR. ABSENT: diastolic murmur, rubs, systolic murmur Pulses: PRESENT: normal dorsalis pedis pul GI/Abdominal exam: PRESENT: normal bowel sounds, soft, tenderness - minimal direct epigastric tenderness, negative rebound. ABSENT: distended, guarding, mass, organolmegaly, rebound Rectal exam: PRESENT: deferred Neurological exam: PRESENT: alert, awake, oriented to person, oriented to place , oriented to time, oriented to situation, CN II-XII grossly intact. ABSENT: motor sensory deficit Results Laboratory Results: 01/13/18 08:05 01/12/18 04:04 01/12/18 01/12/18 01/12/18 10:15 16:15 16:15 WBC 9.5 RBC 3.06 L Hgb 8.1 L Hct 24.2 L MCV 79 L MCH 26.6 L MCHC 33.7 RDW 15.7 H Plt Count 239 Seg Neutrophils % 71.7 Lymphocytes % 17.1 Monocytes % 9.7 Eosinophils % 1.1 Basophils % 0.4 Absolute Neutrophils 6.8 Absolute Lymphocytes 1.6 Absolute Monocytes 0.9 Absolute Eosinophils 0.1 Absolute Basophils 0.0 Magnesium 1.8 Blood Type O POSITIVE Antibody Screen NEGATIVE 01/13/18 08:05 WBC 8.9 RBC 2.85 L Hgb 7.7 L Hct 22.6 L MCV 79 L MCH 26.9 L MCHC 34.0 RDW 16.2 H Plt Count 254 Seg Neutrophils % Lymphocytes % Monocytes % Eosinophils % Basophils % Absolute Neutrophils Absolute Lymphocytes Absolute Monocytes Absolute Eosinophils Absolute Basophils Magnesium Blood Type Antibody Screen Impressions: GI Bleed Scan Nuclear Medicine 01/10/18 00:00 IMPRESSION: No active GI bleed discerned. The results of the examination have been personally discussed with the referring health care provider, Dr. Obrien immediately following interpretation of the examination on 01/10/2018 10:42 PM CDT. Lumbar Spine X-Ray 01/10/18 00:00 IMPRESSION: Grade 1-2 anterolisthesis of L4 on L5 with posterior element hypertrophy at L4-L5 and L5-S1. There is disc space narrowing at the same 2 levels. Assessment & Plan - Diagnosis (1) Anemia Qualifiers: Anemia type: other cause Other causes of anemia: acute posthemorrhagic Qualified Code(s): D62 - Acute posthemorrhagic anemia Is this a current diagnosis for this admission?: Yes Plan: Anemia secondary to GI bleed. She has received a total of 3 u pRBCs. Hemoglobin this morning is 7.7 from 8.1 yesterday. She has not had a BM so far overnight. Will cotinue to monitor H7H and monitor for recurrence of bleeding/ (2) Acute gastrointestinal hemorrhage Is this a current diagnosis for this admission?: Yes Plan: EGD showed antritis, duodenitis and micro ulcerations likely NSAID-induced. Colonoscopy did reveal diffuse diverticulosis and diverticular bleeding. Patient was also noted to have a cecal polyp and had polypectomy. Polyp came back benign. Plan as mentioned in #1. Surgery following. (3) Chronic low back pain Qualifiers: Back pain laterality: unspecified Sciatica presence: unspecified whether sciatica present Qualified Code(s): M54.5 - Low back pain; G89.29 - Other chronic pain; G89.29 - Other chronic pain Is this a current diagnosis for this admission?: Yes Plan: Patient is only getting minimal relief with neurontin and lidocaine patch. Lumbar x-ray showed L4-L5 grade 1-2 anterolisthesis. Will add flexeril. Still awaiting input from pain management for further recommendations. - Time Time Spent with patient: 25-34 minutes
[2018-01-13] MEDS ORDERED: SENNOSIDES/DOCUSATE 8.6-50 MG 1 EACH TABLET PO ONE ×2 (11:00)
[2018-01-13] MEDS: TRAMADOL HCL 50 MG TABLET PO PRN (12:21)
[2018-01-13] MEDS: CYCLOBENZAPRINE HCL 10 MG TABLET PO PRN (12:21)
[2018-01-13] MEDS ORDERED: LORAZEPAM INJ 2 MG/1 ML VIAL ONE (12:53)
--- NOTE | 2018-01-13 12:56 | RADIOLOGY REPORT (SQ) ---
EXAM DESCRIPTION: L SPINE FLEX/EXT ONLY COMPLETED DATE/TIME: 01/13/2018 12:45 pm REASON FOR STUDY: l4 l5 listh COMPARISON: 01/10/2018. NUMBER OF VIEWS: 2 upright views of the lumbar spine, flexion and extension. LIMITATIONS: Limited flexion -extension excursion is suggested. FINDINGS: L4-5 grade 2 listhesis. No change between flexion and extension suggested. OTHER: No other significant finding. IMPRESSION: No change and L4-5 listhesis between flexion and extension imaging. TECHNICAL DOCUMENTATION: JOB ID: [id number] Reading location - IP/workstation name: [email or web address]
[2018-01-13] MEDS: ACETAMINOPHEN 1,000 MG/100 ML RTUPB IV SCH ×2 (14:01→21:39)
--- NOTE | 2018-01-13 14:24 | RADIOLOGY REPORT (SQ) ---
EXAM DESCRIPTION: MRI LUMBAR SPINE WITHOUT COMPLETED DATE/TIME: 01/13/2018 1:50 pm REASON FOR STUDY: L4-5 listhesis, persistent pain despite meds COMPARISON: None. TECHNIQUE: Sagittal and Axial imaging includes T1, T2, STIR and gradient echo sequences. Coronal T2/ HASTE imaging. LIMITATIONS: Motion artifact FINDINGS: VISUALIZED UPPER ABDOMEN: Limited evaluation. No acute or suspicious findings suggested. SEGMENTATION: No transitional anatomy. The lowest well-developed disc space is labeled L5-S1. ALIGNMENT: Minimal grade 1 anterolisthesis of L4 over L5 and L5 over S1. VERTEBRAE: Intact. No compression deformities. BONE MARROW: Fatty reactive vertebral body endplate change at L4-5 and L5-S1 DISC SIGNAL: Diffuse decreased T2 weighted intervertebral disc signal. Disc space loss of height at T12-L1 POSTERIOR ELEMENTS: Generally intact. No pars defect evident. HARDWARE: None in the spine. CORD AND CONUS: Normal in size and signal intensity. Conus at the L1-2 level. SOFT TISSUES: No aortic aneurysm seen. No bulky retroperitoneal adenopathy or mass. No paraspinal mas s or fluid. T11-12: Minimal posterior disc bulge bony spurring, mild bilateral facet hypertrophy. No central st enosis. Mild bilateral foraminal narrowing. T12-L1: Mild diffuse posterior disc bulge and bony spurring with borderline central canal narrowing. Moderate right, mild left foraminal narrowing from facet and uncovertebral hypertrophy. L1-L2: No central stenosis or significant posterior disc bulge. Asymmetric left-sided facet hypertro phy with mild left foraminal narrowing. No right foraminal narrowing. L2-L3: Mild diffuse posterior disc bulge, moderate bilateral facet and ligament hypertrophy. Borderl ine central canal narrowing. Mild right, moderate left foraminal narrowing. L3-L4: Mild diffuse posterior disc bulge and bony spurring is present with moderate bilateral facet a nd ligament hypertrophy. Borderline central canal narrowing. Moderate bilateral foraminal narrowing L4-L5: Grade 1 anterolisthesis of L4 over L5 results from advanced facet arthropathy. There facet maureen int space fluid and bulky bony overgrowth with ligamentum flavum thickening. Broad diffuse disc bulg e. Mild central canal stenosis. Elsewhere at L4-5, there is moderate bilateral foraminal narrowing. L5-S1: Broad diffuse posterior disc bulge and bony spurring present with bulky bilateral facet and li gament hypertrophy. There is a right-sided L5-S1 synovial cyst protruding into the spinal canal, 6 x 3 mm size. This is best shown on axial T2 image 27 sagittal image 80, there is very mild local mass effect on the proximal right S1 nerve root as it exits the thecal sac. Elsewhere at L5-S1, there is moderate to marked right and moderate left foraminal narrowing. SACRUM: Visualized upper sacrum intact. OTHER: No other significant findings. IMPRESSION: Advanced degenerative disc and facet changes most pronounced at L4-5 as above. TECHNICAL DOCUMENTATION: JOB ID: [id number] [employer]- All Rights Reserved Reading location - IP/workstation name: [email or web address]
[2018-01-13 19:04] LABS: HEMATOCRIT 36.9 % (36.0-47.0); MEAN CORPUSCULAR HEMOGLOBIN 30.6 pg (27.0-33.4); MEAN CORPUSCULAR HGB CONC 33.4 g/dL (32.0-36.0); PLATELET COUNT 228 10^3/uL (150-450); RED BLOOD COUNT 4.03 10^6/uL (3.72-5.28); RED CELL DISTRIBUTION WIDTH 13.1 % (11.5-14.0); WHITE BLOOD COUNT 11.6 10^3/uL (4.0-10.5)
[2018-01-13 19:12] LABS: HEMOGLOBIN 12.3 g/dL (12.0-15.5); MEAN CORPUSCULAR VOLUME 92 fl (80-97)
[2018-01-13] MEDS: PREGABALIN 75 MG CAPSULE PO SCH (21:40)
--- NOTE | 2018-01-13 23:58 | CONSULTATION REPORT E ---
Consultation Report NAME: RC BULL : 1960 AGE: 58Y DATE: 01/13/2018 316 A TO: AMI VILLALTA M.D. FROM: TETE PERERA M.D. Requesting Physician PHYSICIAN REQUESTING CONSULT: Dr. Cohen. REASON FOR CONSULTATION: Low back pain. CHIEF COMPLAINT: Low back pain. HISTORY OF PRESENT ILLNESS: The patient is a pleasant 58-year-old female with a past medical history of hyperlipidemia and previous low back pain, who presented to the [facility] Emergency Department with abdominal cramping and rectal bleeding on 01/08/2018. Per the patient, for the past 2 weeks she has been having severe increase in low back pain with pain radiating down the right leg to the toes. She denies any loss of bowel or bladder function associated with this, but states that the pain was so bad that she often was not able to make it to the restroom in time secondary to difficulty with movement. She denied any specific weakness in the lower extremity, but does have pain shooting down the right leg with movement. The patient was notably in [place] visiting her daughter, per her report, and was seen in the emergency department there secondary to a severe increase in pain. She states they gave her morphine and some pain medication, but this was not overtly helpful. She decided she wanted to go home because her daughter had exams, and she did not want to be in her way, so she came back to [place]. She states that she went to the pharmacy and picked up some ibuprofen, was taking quite a bit of this in addition to Naprosyn to try to help alleviate the pain, but this was not really helpful. She notes that she does have a history of arthritis in her back. Her abdominal cramps and rectal bleeding started then last week, and she presented to the emergency department and was found to have a GI bleed. Also of note, she was given a Medrol Dosepak by the emergency department doctor in [place], per her report, but this did not control her pain either. In the past, she has had injections in her lower back, but she states that this low back pain is worse than it has ever been. It has been quite some time since she has had any interventional procedures done. PAST MEDICAL HISTORY: 1. Hyperlipidemia. 2. Chronic low back pain. PAST SURGICAL HISTORY: 1. Recent endoscopy/colonoscopy in house. 2. section years ago. FAMILY HISTORY: Noncontributory. ALLERGIES: No known drug allergies. HOME MEDICATIONS: 1. Naprosyn 500 mg p.o. q.8. 2. Bisacodyl 5 mg p.o. daily. 3. Atorvastatin 40 mg p.o. daily. PHYSICAL EXAMINATION: VITAL SIGNS: Temperature 98.4. Blood pressure 117/60. Respiratory rate 16. Oxygen saturation 100% on room air. Pain level is a 3 out of 5 on a numeric rating scale. GENERAL: The patient is a very pleasant, well-developed female, lying in her hospital bed in no acute distress. She is intermittently tearful when she recounts her history of late. HEENT: Head is normocephalic/atraumatic. NECK: Supple. No adenopathy. RESPIRATORY: Even, unlabored work of breathing. CARDIOVASCULAR: Normal dorsalis pedis and peripheral pulses. GASTROINTESTINAL: Soft, nondistended. EXTREMITIES: Is able to move all extremities. Increased pain in the right lower extremity with movement. MUSCULOSKELETAL: The patient does not have overt tenderness to palpation in the lower back, though she does have pain with movement and rolling to her side. NEUROLOGIC: Right lower extremity examination is somewhat limited by pain, but normal strength and sensation appreciated. No clonus. Negative Babinski. PSYCHIATRIC: The patient does appear somewhat distressed given the recent turn of events in her life. However, she is alert and oriented x3. LABORATORY RESULTS: Lumbar spine x-ray performed 01/10/2018 demonstrated a substantial disk space narrowing at L4-5 and L5-S1, grade-1 to 2 anterolisthesis of L4 on L5, and posterior element hypertrophy at the same levels. ASSESSMENT: 1. Lumbago with sciatica. 2. Spondylolisthesis without myelopathy. 3. Spondylosis without myelopathy. 4. Gastrointestinal bleed. PLAN: The patient is a very pleasant 58-year-old female with chronic low back pain, now substantially worsened. This particular course has been complicated by a GI bleed associated with nonsteroidal anti-inflammatory use and likely also a steroid dose pack. Given the patient's progressive symptoms, I have recommended an MRI of the lumbar spine to determine any underlying disk disease and amount of neurologic compression that may be resultant thereof. I have also recommended flexion/extension films to evaluate for any instability with a listhesis at L4-5. She certainly may be considered for interventional procedures in the future. However, it would be preferable to give her some healing time with regard to recent GI bleed before any sort of steroid or other exposure. In the meantime, the patient states that she does not really want to be on many pills. She has taken Neurontin before with ill side effects. I have recommended switch to Lyrica 75 mg p.o. at bedtime only to allow for improved rest and sleep and improvement in neuropathic pain. I recommend scheduled IV acetaminophen as this will be less irritating to the GI tract. I agree with Lidocaine patches as well as Flexeril. Tramadol may be used p.r.n. for mild pain and continue IV hydromorphone for now. We will continue to follow allow to follow results of imaging studies. Likewise, we can see patient as an outpatient for interventional procedures once issues with GI bleed have resolved. Again, I do not recommend steroid dosing at this time, as this may cause worsening of gastric ulceration. Thank you very much for this interesting consultation. We will continue to follow along. DICTATING PHYSICIAN: AMI VILLALTA M.D. [id number] PHY#: [id number] ID: [id number] JOB#: [id number] ACCT: [id number] cc:AMI VILLALTA M.D. > MTDD
[2018-01-14] MEDS: SUCRALFATE 1 GM TABLET PO SCH ×5 (00:43→23:42)
[2018-01-14] MEDS: TRAMADOL HCL 50 MG TABLET PO PRN (00:47)
[2018-01-14] MEDS: ALPRAZOLAM 0.25 MG TABLET PO PRN (00:47)
[2018-01-14] MEDS: HYDROMORPHONE HCL INJ/PF 2 MG/ML AMPULE IV PRN (01:01)
[2018-01-14] MEDS: ACETAMINOPHEN 1,000 MG/100 ML RTUPB IV SCH ×3 (07:08→21:14)
[2018-01-14] MEDS: LANSOPRAZOLE 30 MG TAB.RAP.DR PO SCH (07:08)
[2018-01-14] MEDS: NORMAL SALINE 1000 ML 1,000 ML IV PRN (07:10)
--- NOTE | 2018-01-14 15:18 | PDOC PROGRESS REPORT ---
Subjective Progress Note for:: 01/14/18 Subjective:: Ms. Sanches was admitted for GI bleed. Patient had EGD and colonoscopy showed duodenitis, antritis and microulcerations. Colonoscopy revealed diverticulosis with diverticular bleeding. No acute event overnight. She says she had one bowel movement earlier this morning which had very minimal bright red blood. She says this is significantly improved from yesterday. She says her back pain today is slightly improved. Reason For Visit: HEMATOCHEZIA, HYPOKALEMIA Physical Exam Vital Signs: Temp Pulse Resp BP Pulse Ox 98.2 F 90 16 127/67 H 100 01/14/18 07:27 01/14/18 07:27 01/14/18 07:27 01/14/18 07:27 01/14/18 07:27 Intake & Output 01/13/18 01/14/18 01/15/18 06:59 06:59 06:59 Intake Total 2830 3734 440 Output Total 2101 2300 400 Balance 729 1434 40 Weight 202 lb 13.204 oz 212 lb 11.937 oz General appearance: PRESENT: no acute distress, well-developed, well-nourished Head exam: PRESENT: atraumatic, normocephalic Eye exam: PRESENT: conjunctiva pink, EOMI, PERRLA. ABSENT: scleral icterus Ear exam: PRESENT: normal external ear exam Mouth exam: PRESENT: moist, tongue midline Neck exam: ABSENT: carotid bruit, JVD, lymphadenopathy, thyromegaly Respiratory exam: PRESENT: clear to auscultation isaac. ABSENT: rales, rhonchi, wheezes Cardiovascular exam: PRESENT: RRR. ABSENT: diastolic murmur, rubs, systolic murmur GI/Abdominal exam: PRESENT: normal bowel sounds, soft. ABSENT: distended, guarding, mass, organolmegaly, rebound, tenderness Rectal exam: PRESENT: deferred Neurological exam: PRESENT: alert, awake, oriented to person, oriented to place , oriented to time, oriented to situation, CN II-XII grossly intact. ABSENT: motor sensory deficit Results Laboratory Results: 01/13/18 18:50 01/12/18 04:04 01/12/18 01/13/18 01/13/18 10:15 18:10 18:50 WBC Cancelled 11.6 H RBC Cancelled 4.03 Hgb Cancelled 12.3 D Hct Cancelled 36.9 MCV Cancelled 92 D MCH Cancelled 30.6 MCHC Cancelled 33.4 RDW Cancelled 13.1 Plt Count Cancelled 228 Blood Type O POSITIVE Antibody Screen NEGATIVE 01/08/18 15:44 Blood Blood Culture - Final NO GROWTH IN 5 DAYS Impressions: GI Bleed Scan Nuclear Medicine 01/10/18 00:00 IMPRESSION: No active GI bleed discerned. The results of the examination have been personally discussed with the referring health care provider, Dr. Obrien immediately following interpretation of the examination on 01/10/2018 10:42 PM CDT. Lumbar Spine X-Ray 01/10/18 00:00 IMPRESSION: Grade 1-2 anterolisthesis of L4 on L5 with posterior element hypertrophy at L4-L5 and L5-S1. There is disc space narrowing at the same 2 levels. Lumbar Spine MRI 01/13/18 00:00 IMPRESSION: Advanced degenerative disc and facet changes most pronounced at L4- 5 as above. Spine Flexion/Extension X-Ray 01/13/18 00:00 IMPRESSION: No change and L4-5 listhesis between flexion and extension imaging. Assessment & Plan - Diagnosis (1) Anemia Qualifiers: Anemia type: other cause Other causes of anemia: acute posthemorrhagic Qualified Code(s): D62 - Acute posthemorrhagic anemia Is this a current diagnosis for this admission?: Yes Plan: Anemia secondary to GI bleed. She has received a total of 3 u pRBCs since admission. Hemoglobin today is 12.3 from 8.1 yesterday. Hb this morning may not be accurate as she had a Hb of 8.1 yesterday. Will repeat another H&H today. She had a BM with a small bright red blood on it this morning but less bloody from yesterday. (2) Acute gastrointestinal hemorrhage Is this a current diagnosis for this admission?: Yes Plan: EGD showed antritis, duodenitis and micro ulcerations likely NSAID-induced. Colonoscopy did reveal diffuse diverticulosis and diverticular bleeding. Patient was also noted to have a cecal polyp and had polypectomy. Polyp came back benign. Plan as mentioned in #1. Surgery following. (3) Chronic low back pain Qualifiers: Back pain laterality: unspecified Sciatica presence: unspecified whether sciatica present Qualified Code(s): M54.5 - Low back pain; G89.29 - Other chronic pain; G89.29 - Other chronic pain Is this a current diagnosis for this admission?: Yes Plan: Pain management on board. Patient is now on Lyrica, Flexeril and tramadol as needed. Lumbar x-ray showed L4-L5 grade 1-2 anterolisthesis. Is a synovial cyst on L5-S1 level which is likely causing the patient's back pain and sciatica. Dr. Lambert has recommended drainage of the synovial cyst and this will be pursued when patient's acute GI issues have resolved. - Time Time Spent with patient: 25-34 minutes
[2018-01-14 18:49] LABS: HEMATOCRIT 21.2 % (36.0-47.0); MEAN CORPUSCULAR HEMOGLOBIN 27.6 pg (27.0-33.4); MEAN CORPUSCULAR HGB CONC 34.1 g/dL (32.0-36.0); PLATELET COUNT 283 10^3/uL (150-450); RED BLOOD COUNT 2.62 10^6/uL (3.72-5.28); RED CELL DISTRIBUTION WIDTH 16.6 % (11.5-14.0); WHITE BLOOD COUNT 9.5 10^3/uL (4.0-10.5)
[2018-01-14 18:52] LABS: MEAN CORPUSCULAR VOLUME 81 fl (80-97)
[2018-01-14 18:54] LABS: HEMOGLOBIN 7.2 g/dL (12.0-15.5)
[2018-01-14] MEDS ORDERED: NORMAL SALINE 250 ML IV PRN ×2 (19:11)
[2018-01-14] MEDS ORDERED: FUROSEMIDE INJ/PF 40 MG/4 ML SDV IV ONE ×2 (19:12→23:30)
[2018-01-14] MEDS ORDERED: DOCUSATE SODIUM 100 MG CAPSULE PO ONE (20:00)
[2018-01-14] MEDS: PREGABALIN 75 MG CAPSULE PO SCH (21:14)
[2018-01-15] MEDS: ALPRAZOLAM 0.25 MG TABLET PO PRN ×2 (02:38→21:32)
[2018-01-15] MEDS: SUCRALFATE 1 GM TABLET PO SCH ×4 (05:39→23:09)
[2018-01-15] MEDS: LANSOPRAZOLE 30 MG TAB.RAP.DR PO SCH (05:40)
[2018-01-15] MEDS: ACETAMINOPHEN 1,000 MG/100 ML RTUPB IV SCH ×3 (05:44→21:33)
[2018-01-15] MEDS ORDERED: ACETAMINOPHEN 1,000 MG/100 ML RTUPB IV ONE (05:49)
[2018-01-15] MEDS: TRAMADOL HCL 50 MG TABLET PO PRN (06:28)
[2018-01-15 06:47] LABS: ABSOLUTE BASOPHILS # (AUTO) 0.1 10^3/uL (0.0-0.2); ABSOLUTE EOSINOPHILS # (AUTO) 0.2 10^3/uL (0.0-0.6); ABSOLUTE LYMPHOCYTES (AUTO) 2.2 10^3/uL (0.5-4.7); ABSOLUTE MONOCYTES (AUTO) 0.8 10^3/uL (0.1-1.4); ABSOLUTE NEUT (AUTO) 7.1 10^3/uL (1.7-8.2); BASOPHILS % (AUTO) 0.8 % (0-2); EOSINOPHILS % (AUTO) 1.7 % (0-6); HEMATOCRIT 27.7 % (36.0-47.0); HEMOGLOBIN 9.6 g/dL (12.0-15.5); LYMPHOCYTES % (AUTO) 21.1 % (13-45); MEAN CORPUSCULAR HEMOGLOBIN 28.1 pg (27.0-33.4); MEAN CORPUSCULAR HGB CONC 34.7 g/dL (32.0-36.0); MEAN CORPUSCULAR VOLUME 81 fl (80-97); MONOCYTES % (AUTO) 7.6 % (3-13); PLATELET COUNT 261 10^3/uL (150-450); RED BLOOD COUNT 3.42 10^6/uL (3.72-5.28); RED CELL DISTRIBUTION WIDTH 16.7 % (11.5-14.0); SEGMENTED NEUTROPHILS % (AUTO) 68.8 % (42-78); TOTAL CELLS COUNTED % (AUTO) 100 %; WHITE BLOOD COUNT 10.4 10^3/uL (4.0-10.5)
[2018-01-15] MEDS: HYDROMORPHONE HCL INJ/PF 2 MG/ML AMPULE IV PRN ×2 (11:19→21:38)
[2018-01-15 16:37] LABS: HEMATOCRIT 32.7 % (36.0-47.0); HEMOGLOBIN 10.8 g/dL (12.0-15.5); MEAN CORPUSCULAR HEMOGLOBIN 26.9 pg (27.0-33.4); MEAN CORPUSCULAR HGB CONC 33.1 g/dL (32.0-36.0); MEAN CORPUSCULAR VOLUME 81 fl (80-97); PLATELET COUNT 335 10^3/uL (150-450); RED BLOOD COUNT 4.02 10^6/uL (3.72-5.28); RED CELL DISTRIBUTION WIDTH 16.6 % (11.5-14.0); WHITE BLOOD COUNT 9.9 10^3/uL (4.0-10.5)
--- NOTE | 2018-01-15 18:16 | PDOC PROGRESS REPORT ---
Subjective Progress Note for:: 01/15/18 Subjective:: Ms. Sanches was admitted for GI bleed. Patient had EGD and colonoscopy showed duodenitis, antritis and microulcerations. Colonoscopy revealed diverticulosis with diverticular bleeding. No acute event overnight. Patient had one bowel movement last night which had scant bright red bloody spots, much better than yesterday. She denies abdominal pain. Reason For Visit: HEMATOCHEZIA, HYPOKALEMIA Physical Exam Vital Signs: Temp Pulse Resp BP Pulse Ox 98.4 F 74 18 123/68 100 01/15/18 11:08 01/15/18 14:00 01/15/18 11:08 01/15/18 11:08 01/15/18 11:08 Intake & Output 01/14/18 01/15/18 01/16/18 06:59 06:59 06:59 Intake Total 3734 3475 220 Output Total 2300 4900 Balance 1434 -1425 220 Weight 212 lb 11.937 oz 207 lb 10.807 oz General appearance: PRESENT: no acute distress, well-developed, well-nourished Head exam: PRESENT: atraumatic, normocephalic Eye exam: PRESENT: conjunctiva pink, EOMI, PERRLA. ABSENT: scleral icterus Ear exam: PRESENT: normal external ear exam Neck exam: ABSENT: carotid bruit, JVD, lymphadenopathy, thyromegaly Respiratory exam: PRESENT: clear to auscultation isaac. ABSENT: rales, rhonchi, wheezes Cardiovascular exam: PRESENT: RRR. ABSENT: diastolic murmur, rubs, systolic murmur Rectal exam: PRESENT: deferred Neurological exam: PRESENT: alert, awake, oriented to person, oriented to place , oriented to time Results Laboratory Results: 01/15/18 06:34 01/12/18 04:04 01/12/18 01/14/18 01/14/18 10:15 17:45 18:40 WBC Cancelled 9.5 RBC Cancelled 2.62 L Hgb Cancelled 7.2 L D Hct Cancelled 21.2 L MCV Cancelled 81 D MCH Cancelled 27.6 MCHC Cancelled 34.1 RDW Cancelled 16.6 H Plt Count Cancelled 283 Seg Neutrophils % Lymphocytes % Monocytes % Eosinophils % Basophils % Absolute Neutrophils Absolute Lymphocytes Absolute Monocytes Absolute Eosinophils Absolute Basophils Blood Type O POSITIVE Antibody Screen NEGATIVE 01/15/18 06:34 WBC 10.4 RBC 3.42 L Hgb 9.6 L D Hct 27.7 L MCV 81 MCH 28.1 MCHC 34.7 RDW 16.7 H Plt Count 261 Seg Neutrophils % 68.8 Lymphocytes % 21.1 Monocytes % 7.6 Eosinophils % 1.7 Basophils % 0.8 Absolute Neutrophils 7.1 Absolute Lymphocytes 2.2 Absolute Monocytes 0.8 Absolute Eosinophils 0.2 Absolute Basophils 0.1 Blood Type Antibody Screen Impressions: GI Bleed Scan Nuclear Medicine 01/10/18 00:00 IMPRESSION: No active GI bleed discerned. The results of the examination have been personally discussed with the referring health care provider, Dr. Obrien immediately following interpretation of the examination on 01/10/2018 10:42 PM CDT. Lumbar Spine X-Ray 01/10/18 00:00 IMPRESSION: Grade 1-2 anterolisthesis of L4 on L5 with posterior element hypertrophy at L4-L5 and L5-S1. There is disc space narrowing at the same 2 levels. Lumbar Spine MRI 01/13/18 00:00 IMPRESSION: Advanced degenerative disc and facet changes most pronounced at L4- 5 as above. Spine Flexion/Extension X-Ray 01/13/18 00:00 IMPRESSION: No change and L4-5 listhesis between flexion and extension imaging. Assessment & Plan - Diagnosis (1) Anemia Qualifiers: Anemia type: other cause Other causes of anemia: acute posthemorrhagic Qualified Code(s): D62 - Acute posthemorrhagic anemia Is this a current diagnosis for this admission?: Yes Plan: Anemia secondary to GI bleed. She has received a total of 5 u pRBCs since admission. Hemoglobin today is 9.2 from 7.1 yesterday after 2 u of pRBCs yesterday. Previous Hb of 12.3 was a lab error. Will repeat another H&H today. (2) Acute gastrointestinal hemorrhage Is this a current diagnosis for this admission?: Yes Plan: EGD showed antritis, duodenitis and micro ulcerations likely NSAID-induced. Colonoscopy did reveal diffuse diverticulosis and diverticular bleeding. Patient was also noted to have a cecal polyp and had polypectomy. Polyp came back benign. Plan as mentioned in #1. Surgery following. (3) Chronic low back pain Qualifiers: Back pain laterality: unspecified Sciatica presence: unspecified whether sciatica present Qualified Code(s): M54.5 - Low back pain; G89.29 - Other chronic pain; G89.29 - Other chronic pain Is this a current diagnosis for this admission?: Yes Plan: Pain management on board. Patient is now on Lyrica, Flexeril and tramadol as needed. Lumbar x-ray showed L4-L5 grade 1-2 anterolisthesis. Is a synovial cyst on L5-S1 level which is likely causing the patient's back pain and sciatica. Dr. Lambert has recommended drainage of the synovial cyst and this will likely be done tomorrow or monday. - Time Time Spent with patient: 25-34 minutes
[2018-01-15] MEDS: PREGABALIN 75 MG CAPSULE PO SCH (21:32)
[2018-01-16] MEDS: TRAMADOL HCL 50 MG TABLET PO PRN ×2 (03:33→07:56)
[2018-01-16 05:00] LABS: HEMATOCRIT 29.1 % (36.0-47.0); HEMOGLOBIN 9.9 g/dL (12.0-15.5); MEAN CORPUSCULAR HEMOGLOBIN 27.4 pg (27.0-33.4); MEAN CORPUSCULAR HGB CONC 33.9 g/dL (32.0-36.0); MEAN CORPUSCULAR VOLUME 81 fl (80-97); PLATELET COUNT 291 10^3/uL (150-450); WHITE BLOOD COUNT 9.4 10^3/uL (4.0-10.5)
[2018-01-16] MEDS: SUCRALFATE 1 GM TABLET PO SCH ×3 (06:12→18:28)
[2018-01-16] MEDS: LANSOPRAZOLE 30 MG TAB.RAP.DR PO SCH (06:12)
[2018-01-16] MEDS: ACETAMINOPHEN 1,000 MG/100 ML RTUPB IV SCH (06:13)
[2018-01-16] MEDS: LIDOCAINE 5% (700 MG) TRANSDERMAL ADH..PATCH TP SCH (10:43)
--- NOTE | 2018-01-16 11:26 | PDOC PROGRESS REPORT ---
Subjective Progress Note for:: 01/16/18 Subjective:: Ms. Sanches was admitted for GI bleed. Patient had EGD and colonoscopy showed duodenitis, antritis and microulcerations. Colonoscopy revealed diverticulosis with diverticular bleeding. No acute events overnight patient is still complaining of diffuse abdominal pain and right-sided back pain. Patient denies any fever, shortness of breath, chest pain, nausea, vomiting, diarrhea, constipation, urinary symptoms Reason For Visit: HEMATOCHEZIA, HYPOKALEMIA Physical Exam Vital Signs: Temp Pulse Resp BP Pulse Ox 98.4 F 81 18 121/76 100 01/16/18 07:20 01/16/18 07:20 01/16/18 07:20 01/16/18 07:20 01/16/18 07:20 Intake & Output 01/15/18 01/16/18 01/17/18 06:59 06:59 06:59 Intake Total 3475 542 100 Output Total 4900 444 Balance -1425 98 100 Weight 94.2 kg 95.1 kg General appearance: PRESENT: no acute distress, well-developed, well-nourished Head exam: PRESENT: atraumatic, normocephalic Eye exam: PRESENT: conjunctiva pink, EOMI, PERRLA. ABSENT: scleral icterus Ear exam: PRESENT: normal external ear exam Mouth exam: PRESENT: moist, tongue midline Neck exam: ABSENT: carotid bruit, JVD, lymphadenopathy, thyromegaly Respiratory exam: PRESENT: clear to auscultation isaac. ABSENT: rales, rhonchi, wheezes Cardiovascular exam: PRESENT: RRR. ABSENT: diastolic murmur, rubs, systolic murmur Pulses: PRESENT: normal dorsalis pedis pul Vascular exam: PRESENT: normal capillary refill GI/Abdominal exam: PRESENT: normal bowel sounds, soft, tenderness - Diffuse abdominal tenderness.. ABSENT: distended, guarding, mass, organolmegaly, rebound Rectal exam: PRESENT: deferred Extremities exam: PRESENT: full ROM. ABSENT: calf tenderness, clubbing, pedal edema Musculoskeletal exam: PRESENT: tenderness - Right lower extremity positive straight leg test Neurological exam: PRESENT: alert, awake, oriented to person, oriented to place , oriented to time, oriented to situation, CN II-XII grossly intact. ABSENT: motor sensory deficit Psychiatric exam: PRESENT: appropriate affect, normal mood. ABSENT: homicidal ideation, suicidal ideation Skin exam: PRESENT: dry, intact, warm. ABSENT: cyanosis, rash Results Laboratory Results: 01/16/18 04:22 01/12/18 04:04 01/15/18 01/16/18 16:28 04:22 WBC 9.9 9.4 RBC 4.02 3.60 L Hgb 10.8 L 9.9 L Hct 32.7 L 29.1 L MCV 81 81 MCH 26.9 L 27.4 MCHC 33.1 33.9 RDW 16.6 H 17.0 H Plt Count 335 291 Impressions: GI Bleed Scan Nuclear Medicine 01/10/18 00:00 IMPRESSION: No active GI bleed discerned. The results of the examination have been personally discussed with the referring health care provider, Dr. Obrien immediately following interpretation of the examination on 01/10/2018 10:42 PM CDT. Lumbar Spine X-Ray 01/10/18 00:00 IMPRESSION: Grade 1-2 anterolisthesis of L4 on L5 with posterior element hypertrophy at L4-L5 and L5-S1. There is disc space narrowing at the same 2 levels. Lumbar Spine MRI 01/13/18 00:00 IMPRESSION: Advanced degenerative disc and facet changes most pronounced at L4- 5 as above. Spine Flexion/Extension X-Ray 01/13/18 00:00 IMPRESSION: No change and L4-5 listhesis between flexion and extension imaging. Assessment & Plan - Diagnosis (1) Acute gastrointestinal hemorrhage Is this a current diagnosis for this admission?: Yes Plan: 01/09/2018 EGD showed antritis, duodenitis and micro ulcerations likely NSAID- induced. 01/09/2018 colonoscopy did reveal diffuse diverticulosis and diverticular bleeding. Patient was also noted to have a cecal polyp and had polypectomy. Polyp came back benign. 01/10/2018 nuclear scan negative for any GI bleeding. Status post 2 PRBC transfusion 01/15/2018. Hemoglobin 9.4 from 9.9 today. Will monitor and transfuse as needed. Pending stool H pylori antigen. (2) Abdominal pain Is this a current diagnosis for this admission?: Yes Plan: Diffuse abdominal pain. C. difficile, stool workup and cultures have been negative since admission. Patient is status EGD and colonoscopy. Continue supportive measures. (3) Chronic low back pain Qualifiers: Back pain laterality: unspecified Sciatica presence: unspecified whether sciatica present Qualified Code(s): M54.5 - Low back pain; G89.29 - Other chronic pain; G89.29 - Other chronic pain Is this a current diagnosis for this admission?: Yes Plan: Continue Flexeril lidocaine patch and narcotics. Pain management on board. (4) Anemia Qualifiers: Anemia type: other cause Other causes of anemia: acute posthemorrhagic Qualified Code(s): D62 - Acute posthemorrhagic anemia Is this a current diagnosis for this admission?: Yes Plan: Anemia secondary to GI bleed. She has received a total of 5 u pRBCs since admission. Hemoglobin today is 9.4 from 9.9 yesterday after 2 u of pRBCs yesterday. Will transfuse if hemoglobin under 7 or symptomatic.
[2018-01-16] MEDS: CYCLOBENZAPRINE HCL 10 MG TABLET PO PRN ×2 (11:41→21:50)
[2018-01-16] MEDS ORDERED: ONDANSETRON HCL INJ/PF 4 MG/2 ML SDV IV PRN (13:00)
[2018-01-16] MEDS: PREGABALIN 75 MG CAPSULE PO SCH (21:50)
[2018-01-16] MEDS: ALPRAZOLAM 0.25 MG TABLET PO PRN (21:51)
[2018-01-16] MEDS: PHARMACY COMMUNICATION ORDER MC SCH (21:54)
[2018-01-17] MEDS: TRAMADOL HCL 50 MG TABLET PO PRN ×2 (00:59→12:54)
[2018-01-17] MEDS: OXYCODONE-ACETAMINOPHEN 5-325 MG TABLET PO PRN ×2 (01:00→21:08)
[2018-01-17] MEDS: SUCRALFATE 1 GM TABLET PO SCH ×4 (01:00→17:13)
[2018-01-17] MEDS: LANSOPRAZOLE 30 MG TAB.RAP.DR PO SCH (05:06)
[2018-01-17 05:21] LABS: ABSOLUTE EOSINOPHILS # (AUTO) 0.1 10^3/uL (0.0-0.6); ABSOLUTE LYMPHOCYTES (AUTO) 1.8 10^3/uL (0.5-4.7); ABSOLUTE MONOCYTES (AUTO) 0.6 10^3/uL (0.1-1.4); ABSOLUTE NEUT (AUTO) 4.2 10^3/uL (1.7-8.2); BASOPHILS % (AUTO) 0.5 % (0-2); EOSINOPHILS % (AUTO) 1.8 % (0-6); HEMATOCRIT 27.7 % (36.0-47.0); HEMOGLOBIN 9.4 g/dL (12.0-15.5); LYMPHOCYTES % (AUTO) 26.2 % (13-45); MEAN CORPUSCULAR HEMOGLOBIN 27.7 pg (27.0-33.4); MEAN CORPUSCULAR HGB CONC 33.9 g/dL (32.0-36.0); MEAN CORPUSCULAR VOLUME 82 fl (80-97); MONOCYTES % (AUTO) 9.1 % (3-13); PLATELET COUNT 295 10^3/uL (150-450); RED BLOOD COUNT 3.39 10^6/uL (3.72-5.28); RED CELL DISTRIBUTION WIDTH 16.8 % (11.5-14.0); SEGMENTED NEUTROPHILS % (AUTO) 62.4 % (42-78); TOTAL CELLS COUNTED % (AUTO) 100 %; WHITE BLOOD COUNT 6.8 10^3/uL (4.0-10.5)
[2018-01-17 05:54] LABS: ALANINE AMINOTRANSFERASE 30 U/L (9-52); ALBUMIN 2.7 g/dL (3.5-5.0); ALKALINE PHOSPHATASE 84 U/L (38-126); ANION GAP 7 (5-19); ASPARTATE AMINO TRANSFERASE 33 U/L (14-36); BILIRUBIN,DIRECT 0.3 mg/dL (0.0-0.4); BILIRUBIN,TOTAL 0.3 mg/dL (0.2-1.3); BLOOD UREA NITROGEN 12 mg/dL (7-20); CALCIUM 8.1 mg/dL (8.4-10.2); CARBON DIOXIDE 26 mmol/L (22-30); CHLORIDE 107 mmol/L (98-107); GLUCOSE 100 mg/dL (75-110); POTASSIUM 3.7 mmol/L (3.6-5.0); SODIUM 139.5 mmol/L (137-145); TOTAL PROTEIN 5.4 g/dL (6.3-8.2)
[2018-01-17] MEDS ORDERED: METHYLPREDNISOLONE ACETATE INJ 40 MG/1 ML ML ONE (11:57)
--- NOTE | 2018-01-17 12:40 | PDOC PROGRESS REPORT ---
Subjective Progress Note for:: 01/17/18 Subjective:: Ms. Sanches was admitted for GI bleed. Patient had EGD and colonoscopy showed duodenitis, antritis and microulcerations. Colonoscopy revealed diverticulosis with diverticular bleeding. No acute events overnight patient is still complaining of diffuse abdominal pain and right-sided back pain. It is n.p.o. today for procedure for pain management Patient denies any fever, shortness of breath, chest pain, nausea, vomiting, diarrhea, constipation, urinary symptoms Reason For Visit: HEMATOCHEZIA, HYPOKALEMIA Physical Exam Vital Signs: Temp Pulse Resp BP Pulse Ox 97.8 F 78 20 111/61 100 01/17/18 07:09 01/17/18 07:09 01/17/18 07:09 01/17/18 07:09 01/17/18 07:09 Intake & Output 01/16/18 01/17/18 01/18/18 06:59 06:59 06:59 Intake Total 542 604 Output Total 444 800 Balance 98 -196 Weight 95.1 kg 95 kg General appearance: PRESENT: no acute distress, well-developed, well-nourished Head exam: PRESENT: atraumatic, normocephalic Eye exam: PRESENT: conjunctiva pink, EOMI, PERRLA. ABSENT: scleral icterus Ear exam: PRESENT: normal external ear exam Mouth exam: PRESENT: moist, tongue midline Neck exam: ABSENT: carotid bruit, JVD, lymphadenopathy, thyromegaly Respiratory exam: PRESENT: clear to auscultation isaac. ABSENT: rales, rhonchi, wheezes Cardiovascular exam: PRESENT: RRR. ABSENT: diastolic murmur, rubs, systolic murmur Pulses: PRESENT: normal dorsalis pedis pul Vascular exam: PRESENT: normal capillary refill GI/Abdominal exam: PRESENT: normal bowel sounds, soft. ABSENT: distended, guarding, mass, organolmegaly, rebound, tenderness Rectal exam: PRESENT: deferred Extremities exam: PRESENT: full ROM. ABSENT: calf tenderness, clubbing, pedal edema Neurological exam: PRESENT: alert, awake, oriented to person, oriented to place , oriented to time, oriented to situation, CN II-XII grossly intact. ABSENT: motor sensory deficit Psychiatric exam: PRESENT: appropriate affect, normal mood. ABSENT: homicidal ideation, suicidal ideation Skin exam: PRESENT: dry, intact, warm. ABSENT: cyanosis, rash Results Laboratory Results: 01/17/18 04:52 01/17/18 04:52 01/17/18 01/17/18 04:52 04:52 WBC 6.8 RBC 3.39 L Hgb 9.4 L Hct 27.7 L MCV 82 MCH 27.7 MCHC 33.9 RDW 16.8 H Plt Count 295 Seg Neutrophils % 62.4 Lymphocytes % 26.2 Monocytes % 9.1 Eosinophils % 1.8 Basophils % 0.5 Absolute Neutrophils 4.2 Absolute Lymphocytes 1.8 Absolute Monocytes 0.6 Absolute Eosinophils 0.1 Absolute Basophils 0.0 Sodium 139.5 Potassium 3.7 Chloride 107 Carbon Dioxide 26 Anion Gap 7 BUN 12 Creatinine 0.68 Est GFR ( Amer) > 60 Est GFR (Non-Af Amer) > 60 Glucose 100 Calcium 8.1 L Total Bilirubin 0.3 AST 33 ALT 30 Alkaline Phosphatase 84 Total Protein 5.4 L Albumin 2.7 L Impressions: GI Bleed Scan Nuclear Medicine 01/10/18 00:00 IMPRESSION: No active GI bleed discerned. The results of the examination have been personally discussed with the referring health care provider, Dr. Obrien immediately following interpretation of the examination on 01/10/2018 10:42 PM CDT. Lumbar Spine X-Ray 01/10/18 00:00 IMPRESSION: Grade 1-2 anterolisthesis of L4 on L5 with posterior element hypertrophy at L4-L5 and L5-S1. There is disc space narrowing at the same 2 levels. Lumbar Spine MRI 01/13/18 00:00 IMPRESSION: Advanced degenerative disc and facet changes most pronounced at L4- 5 as above. Spine Flexion/Extension X-Ray 01/13/18 00:00 IMPRESSION: No change and L4-5 listhesis between flexion and extension imaging. Assessment & Plan - Diagnosis (1) Acute gastrointestinal hemorrhage Is this a current diagnosis for this admission?: Yes Plan: 01/09/2018 EGD showed antritis, duodenitis and micro ulcerations likely NSAID- induced. 01/09/2018 colonoscopy did reveal diffuse diverticulosis and diverticular bleeding. Patient was also noted to have a cecal polyp and had polypectomy. Polyp came back benign. 01/10/2018 nuclear scan negative for any GI bleeding. Status post 2 PRBC transfusion 01/15/2018. Hemoglobin 9.4 from 9.9 today. Denies any melena or hematochezia. Will monitor and transfuse as needed. Pending stool H pylori antigen. (2) Abdominal pain Is this a current diagnosis for this admission?: Yes Plan: Diffuse abdominal pain. C. difficile, stool workup and cultures have been negative since admission. Patient is status EGD and colonoscopy. Continue supportive measures. (3) Chronic low back pain Qualifiers: Back pain laterality: unspecified Sciatica presence: unspecified whether sciatica present Qualified Code(s): M54.5 - Low back pain; G89.29 - Other chronic pain; G89.29 - Other chronic pain Is this a current diagnosis for this admission?: Yes Plan: Continue Flexeril, lidocaine patch, Lyrica. Pain management on board. Status post synovial cyst aspiration and epidural injection of the lumbar spine (4) Anemia Qualifiers: Anemia type: other cause Other causes of anemia: acute posthemorrhagic Qualified Code(s): D62 - Acute posthemorrhagic anemia Is this a current diagnosis for this admission?: Yes Plan: Anemia secondary to GI bleed. She has received a total of 5 u pRBCs since admission. Hemoglobin today is 9.4 from 9.9 yesterday after 2 u of pRBCs yesterday. Will transfuse if hemoglobin under 7 or symptomatic. Hemoglobin relatively stable. Denies any melena or hematochezia. One dose of Injectafer for iron deficiency anemia. Will hold oral ferrous sulfate therapy to avoid complicating her gastritis/esophagitis. Patient can be placed on ferrous sulfate at a later date.
[2018-01-17] MEDS ORDERED: FERRIC CARBOXYMALTOSE INJ 750 MG/15 ML VIAL IV SCH (12:45)
[2018-01-17] MEDS: LIDOCAINE 5% (700 MG) TRANSDERMAL ADH..PATCH TP SCH (12:55)
--- NOTE | 2018-01-17 13:01 | RADIOLOGY REPORT (SQ) ---
EXAM DESCRIPTION: INJ EPI/SUBARCH/ C/T W/O CATH; FINE NEEDLE ASPIRATION COMPLETED DATE/TIME: 01/17/2018 12:41 pm REASON FOR STUDY: cyst on cervical spine; CYST ON LUMBAR SPINE COMPARISON: None. FLUOROSCOPY TIME: 1.2 minutes 7 images saved to PACS. TECHNIQUE: Intra-operative images acquired during surgical procedure to evaluate progress. NUMBER OF IMAGES: 7 LIMITATIONS: None. FINDINGS: Selected images from procedure performed in the operating room. Spinal needle overlies th e L5-S1 level from a posterior approach. IMPRESSION: IMAGE(S) OBTAINED DURING PROCEDURE. COMMENT: Quality ID 145: Final reports for procedures using fluoroscopy that document radiation exp osure indices, or exposure time and number of fluorographic images (if radiation exposure indices are not available) Please consult full operative report of the attending physician for description of the procedure. TECHNICAL DOCUMENTATION: JOB ID: [id number] [employer]- All Rights Reserved Reading location - IP/workstation name: [email or web address]
--- NOTE | 2018-01-17 13:01 | RADIOLOGY REPORT (SQ) ---
EXAM DESCRIPTION: INJ EPI/SUBARCH/ C/T W/O CATH; FINE NEEDLE ASPIRATION COMPLETED DATE/TIME: 01/17/2018 12:41 pm REASON FOR STUDY: cyst on cervical spine; CYST ON LUMBAR SPINE COMPARISON: None. FLUOROSCOPY TIME: 1.2 minutes 7 images saved to PACS. TECHNIQUE: Intra-operative images acquired during surgical procedure to evaluate progress. NUMBER OF IMAGES: 7 LIMITATIONS: None. FINDINGS: Selected images from procedure performed in the operating room. Spinal needle overlies th e L5-S1 level from a posterior approach. IMPRESSION: IMAGE(S) OBTAINED DURING PROCEDURE. COMMENT: Quality ID [id number]: Final reports for procedures using fluoroscopy that document radiation exp osure indices, or exposure time and number of fluorographic images (if radiation exposure indices are not available) Please consult full operative report of the attending physician for description of the procedure. TECHNICAL DOCUMENTATION: JOB ID: [id number] [employer]- All Rights Reserved Reading location - IP/workstation name: [email or web address]
--- NOTE | 2018-01-17 14:25 | OPERATIVE REPORT E ---
Operative Report NAME: RC BULL : 1960 AGE: 58Y DATE OF SURGERY: 01/17/2018 ROOM: 316 PREOPERATIVE DIAGNOSIS: 1. Lumbar radiculopathy. 2. Lumbar spondylosis without myelopathy. POSTOPERATIVE DIAGNOSIS: 1. Lumbar radiculopathy. 2. Lumbar spondylosis without myelopathy. OPERATION: 1. Lumbar epidural steroid injection L5-S1 with 80 mg Depo-Medrol. 2. Right L5-SA synovial cyst aspiration. SURGEON: AMI VILLALTA M.D. ANESTHESIA: Local. ESTIMATED BLOOD LOSS: None. PREOPERATIVE ANTIBIOTICS: None indicted. PROCEDURAL INDICATIONS: The patient is a 58-year-old female with severe low back and right lower extremity pain. She is found to have a synovial cyst protruding in her spinal canal on the right side on lumbar MRI, as well as degenerative disk disease at this level. The patient was determined to be a candidate for the aforementioned procedure and all risks and benefits were discussed. Risks include, but are not limited to bleeding, bruising, infection, injury to nerves, arteries, veins, failure to ameliorate pain, loss of bowel or bladder function, paralysis, potentially even . The patient agreed to procedure. PROCEDURE: The patient was accompanied to the radiology suite where she was placed prone and all pressure points were checked and padded. The procedure site was prepped with chlorhexidine gluconate solution and draped in sterile fashion. AP and lateral fluoroscopic guidance was utilized to confirm proper needle placement. Attention was first turned to the right-sided L5-S1 facet joint. Using deep oblique angulation, the facet joint was visualized. The skin overlying the intended target site was anesthetized with 1% lidocaine. This was using a 25-gauge needle. Subsequently, a 20-gauge 3.5 inch needle was advanced using intermittent oblique and lateral fluoroscopic guidance to the facet joint. The needle was then placed into the facet joint and aspiration of blood tinged synovial fluid and a 1 mL was aspirated. Then attention was turned to the L5-S1 interspace where the skin was anesthetized overlying the right side of the L5-S1 interspace. This was anesthetized with 1% lidocaine. Subsequently, a 16-gauge Tuohy needle was advanced using intermittent AP and lateral fluoroscopic guidance to the L5-S1 interspace. Notably, epidural access was gained using a loss of resistance technique using normal saline. This was confirmed Isovue 200 contrast concentrating epidurogram in the posterior epidural space. Aspiration was negative for heme or CSF. Subsequently, a mixture of 80 mg of Kenalog and saline to a volume of 4 mL was injected into the posterior epidural space. An additional 40 mg Depo-Medrol was injected into and periarticularly around the right-sided facet joint. Both needles were removed. The skin was cleansed and bandages applied. A total of notably 2 mL Isovue contrast was injected. The patient was accompanied in stable condition to her room. DICTATING PHYSICIAN: AMI VILLALTA M.D. [id number] PHY#: [id number] ID: [id number] JOB#: [id number] ACCT: [id number] cc:AMI VILLALTA M.D. >
[2018-01-17] MEDS ORDERED: FERRIC CARBOXYMALTOSE 750 MG in NORMAL SALINE 250 ML IV ONE (16:00)
[2018-01-17] MEDS: ALPRAZOLAM 0.25 MG TABLET PO PRN (21:07)
[2018-01-17] MEDS: CYCLOBENZAPRINE HCL 10 MG TABLET PO PRN (21:08)
[2018-01-17] MEDS: PREGABALIN 75 MG CAPSULE PO SCH (21:08)
[2018-01-17] MEDS: PHARMACY COMMUNICATION ORDER MC SCH (21:11)
[2018-01-18] MEDS: SUCRALFATE 1 GM TABLET PO SCH ×5 (01:00→23:23)
[2018-01-18] MEDS: TRAMADOL HCL 50 MG TABLET PO PRN (01:28)
[2018-01-18] MEDS: LANSOPRAZOLE 30 MG TAB.RAP.DR PO SCH (09:12)
[2018-01-18 09:23] LABS: ABSOLUTE LYMPHOCYTES (AUTO) 0.8 10^3/uL (0.5-4.7); ABSOLUTE MONOCYTES (AUTO) 0.4 10^3/uL (0.1-1.4); ABSOLUTE NEUT (AUTO) 6.9 10^3/uL (1.7-8.2); BASOPHILS % (AUTO) 0.4 % (0-2); EOSINOPHILS % (AUTO) 0.6 % (0-6); HEMATOCRIT 31.1 % (36.0-47.0); HEMOGLOBIN 10.3 g/dL (12.0-15.5); LYMPHOCYTES % (AUTO) 9.7 % (13-45); MEAN CORPUSCULAR HEMOGLOBIN 26.9 pg (27.0-33.4); MEAN CORPUSCULAR HGB CONC 32.9 g/dL (32.0-36.0); MEAN CORPUSCULAR VOLUME 82 fl (80-97); MONOCYTES % (AUTO) 5.4 % (3-13); PLATELET COUNT 325 10^3/uL (150-450); RED BLOOD COUNT 3.81 10^6/uL (3.72-5.28); RED CELL DISTRIBUTION WIDTH 16.9 % (11.5-14.0); SEGMENTED NEUTROPHILS % (AUTO) 83.9 % (42-78); TOTAL CELLS COUNTED % (AUTO) 100 %; WHITE BLOOD COUNT 8.2 10^3/uL (4.0-10.5)
--- NOTE | 2018-01-18 11:37 | PDOC PROGRESS REPORT ---
Subjective Progress Note for:: 01/18/18 Subjective:: Ms. Sanches was admitted for GI bleed. Patient had EGD and colonoscopy showed duodenitis, antritis and microulcerations. Colonoscopy revealed diverticulosis with diverticular bleeding. No acute events overnight. Patient is status post cyst aspiration and epidural injection in the lumbar spine. Patient says her back pain is better but overnight she was having pulling sensation in her back which was relieved by lidocaine patch. Patient denies any fever, shortness of breath, chest pain, nausea, vomiting, diarrhea, constipation, urinary symptoms Reason For Visit: HEMATOCHEZIA, HYPOKALEMIA Physical Exam Vital Signs: Temp Pulse Resp BP Pulse Ox 98.7 F 81 12 126/72 H 99 01/18/18 08:15 01/18/18 08:15 01/18/18 08:15 01/18/18 08:15 01/18/18 08:15 Intake & Output 01/17/18 01/18/18 01/19/18 06:59 06:59 06:59 Intake Total 604 502 Output Total 800 Balance -196 502 Weight 95 kg General appearance: PRESENT: no acute distress, well-developed, well-nourished Head exam: PRESENT: atraumatic, normocephalic Eye exam: PRESENT: conjunctiva pink, EOMI, PERRLA. ABSENT: scleral icterus Ear exam: PRESENT: normal external ear exam Mouth exam: PRESENT: moist, tongue midline Neck exam: ABSENT: carotid bruit, JVD, lymphadenopathy, thyromegaly Respiratory exam: PRESENT: clear to auscultation isaac. ABSENT: rales, rhonchi, wheezes Cardiovascular exam: PRESENT: RRR. ABSENT: diastolic murmur, rubs, systolic murmur Pulses: PRESENT: normal dorsalis pedis pul Vascular exam: PRESENT: normal capillary refill GI/Abdominal exam: PRESENT: normal bowel sounds, soft. ABSENT: distended, guarding, mass, organolmegaly, rebound, tenderness Rectal exam: PRESENT: deferred Extremities exam: PRESENT: full ROM. ABSENT: calf tenderness, clubbing, pedal edema Neurological exam: PRESENT: alert, awake, oriented to person, oriented to place , oriented to time, oriented to situation, CN II-XII grossly intact. ABSENT: motor sensory deficit Psychiatric exam: PRESENT: appropriate affect, normal mood. ABSENT: homicidal ideation, suicidal ideation Skin exam: PRESENT: dry, intact, warm. ABSENT: cyanosis, rash Results Laboratory Results: 01/18/18 05:04 01/17/18 04:52 01/18/18 05:04 WBC 8.2 RBC 3.81 Hgb 10.3 L Hct 31.1 L MCV 82 MCH 26.9 L MCHC 32.9 RDW 16.9 H Plt Count 325 Seg Neutrophils % 83.9 H Lymphocytes % 9.7 L Monocytes % 5.4 Eosinophils % 0.6 Basophils % 0.4 Absolute Neutrophils 6.9 Absolute Lymphocytes 0.8 Absolute Monocytes 0.4 Absolute Eosinophils 0.0 Absolute Basophils 0.0 Impressions: GI Bleed Scan Nuclear Medicine 01/10/18 00:00 IMPRESSION: No active GI bleed discerned. The results of the examination have been personally discussed with the referring health care provider, Dr. Obrien immediately following interpretation of the examination on 01/10/2018 10:42 PM CDT. Lumbar Spine X-Ray 01/10/18 00:00 IMPRESSION: Grade 1-2 anterolisthesis of L4 on L5 with posterior element hypertrophy at L4-L5 and L5-S1. There is disc space narrowing at the same 2 levels. Lumbar Spine MRI 01/13/18 00:00 IMPRESSION: Advanced degenerative disc and facet changes most pronounced at L4- 5 as above. Spine Flexion/Extension X-Ray 01/13/18 00:00 IMPRESSION: No change and L4-5 listhesis between flexion and extension imaging. Needle Aspiration 01/17/18 00:00 IMPRESSION: IMAGE(S) OBTAINED DURING PROCEDURE. Epidural Injection 01/17/18 11:30 IMPRESSION: IMAGE(S) OBTAINED DURING PROCEDURE. Assessment & Plan - Diagnosis (1) Acute gastrointestinal hemorrhage Is this a current diagnosis for this admission?: Yes Plan: 01/09/2018 EGD showed antritis, duodenitis and micro ulcerations likely NSAID- induced. 01/09/2018 colonoscopy did reveal diffuse diverticulosis and diverticular bleeding. Patient was also noted to have a cecal polyp and had polypectomy. Polyp came back benign. 01/10/2018 nuclear scan negative for any GI bleeding. Status post 2 PRBC transfusion 01/15/2018. Hemoglobin 10.3 from 9.4 today. Denies any melena or hematochezia. Will monitor and transfuse as needed. Pending stool H pylori antigen. She received 1 dose of Injectafer yesterday. (2) Abdominal pain Is this a current diagnosis for this admission?: Yes Plan: Diffuse abdominal pain. C. difficile, stool workup and cultures have been negative since admission. Patient is status EGD and colonoscopy. Continue supportive measures. (3) Chronic low back pain Qualifiers: Back pain laterality: unspecified Sciatica presence: unspecified whether sciatica present Qualified Code(s): M54.5 - Low back pain; G89.29 - Other chronic pain; G89.29 - Other chronic pain Is this a current diagnosis for this admission?: Yes Plan: Continue Flexeril, lidocaine patch, Lyrica. Pain management on board. Status post synovial cyst aspiration and epidural injection of the lumbar spine. Patient states pain is better than before the epidural injection (4) Anemia Qualifiers: Anemia type: other cause Other causes of anemia: acute posthemorrhagic Qualified Code(s): D62 - Acute posthemorrhagic anemia Is this a current diagnosis for this admission?: Yes Plan: Anemia secondary to GI bleed. She has received a total of 5 u pRBCs since admission. Hemoglobin today is 10.3 from 9.4. She received 2 pRBCs 01/18/2018. Will transfuse if hemoglobin under 7 or symptomatic. Denies any melena or hematochezia. One dose of Injectafer for iron deficiency anemia yesterday. Will hold oral ferrous sulfate therapy to avoid complicating her gastritis/esophagitis. Patient can be placed on ferrous sulfate at a later date.
[2018-01-18] MEDS: LIDOCAINE 5% (700 MG) TRANSDERMAL ADH..PATCH TP SCH (13:50)
[2018-01-18] MEDS: PREGABALIN 75 MG CAPSULE PO SCH (21:51)
[2018-01-18] MEDS: ALPRAZOLAM 0.25 MG TABLET PO PRN (21:52)
[2018-01-18] MEDS: CYCLOBENZAPRINE HCL 10 MG TABLET PO PRN (21:52)
[2018-01-18] MEDS: PHARMACY COMMUNICATION ORDER MC SCH (21:52)
[2018-01-19 05:12] LABS: ABSOLUTE LYMPHOCYTES (AUTO) 1.2 10^3/uL (0.5-4.7); ABSOLUTE MONOCYTES (AUTO) 0.5 10^3/uL (0.1-1.4); ABSOLUTE NEUT (AUTO) 7.6 10^3/uL (1.7-8.2); BASOPHILS % (AUTO) 0.5 % (0-2); EOSINOPHILS % (AUTO) 0.2 % (0-6); HEMATOCRIT 30.9 % (36.0-47.0); HEMOGLOBIN 10.3 g/dL (12.0-15.5); LYMPHOCYTES % (AUTO) 13.1 % (13-45); MEAN CORPUSCULAR HEMOGLOBIN 27.4 pg (27.0-33.4); MEAN CORPUSCULAR HGB CONC 33.4 g/dL (32.0-36.0); MEAN CORPUSCULAR VOLUME 82 fl (80-97); PLATELET COUNT 353 10^3/uL (150-450); RED BLOOD COUNT 3.76 10^6/uL (3.72-5.28); RED CELL DISTRIBUTION WIDTH 16.6 % (11.5-14.0); SEGMENTED NEUTROPHILS % (AUTO) 81.2 % (42-78); TOTAL CELLS COUNTED % (AUTO) 100 %; WHITE BLOOD COUNT 9.4 10^3/uL (4.0-10.5)
[2018-01-19] MEDS: SUCRALFATE 1 GM TABLET PO SCH (05:39)
[2018-01-19] MEDS: LANSOPRAZOLE 30 MG TAB.RAP.DR PO SCH (08:34)
[2018-01-19] MEDS: TRAMADOL HCL 50 MG TABLET PO PRN (08:36)
[2018-01-19] MEDS: LIDOCAINE 5% (700 MG) TRANSDERMAL ADH..PATCH TP SCH (10:30)
[2018-01-19 13:08] VITALS: BP 118/73
--- NOTE | 2018-01-21 15:14 | PDOC DISCHARGE SUMMARY ---
General - Admit/Disc Date/PCP Admission Date/Primary Care Provider: 01/08/18 15:37 TURNER WALTER, Discharge Date: 01/19/18 - Discharge Diagnosis (1) Acute gastrointestinal hemorrhage Is this a current diagnosis for this admission?: Yes Summary: 01/09/2018 EGD showed antritis, duodenitis and micro ulcerations likely NSAID- induced. 01/09/2018 colonoscopy did reveal diffuse diverticulosis and diverticular bleeding. Patient was also noted to have a cecal polyp and had polypectomy. Polyp came back benign. 01/10/2018 nuclear scan negative for any GI bleeding. Status post 2 PRBC transfusion 01/15/2018. Hemoglobin 10.3 from 9.4 today. H.Pylori Ag Negative. Received 1 dose of Injectafer (2) Abdominal pain Is this a current diagnosis for this admission?: Yes Summary: Diffuse abdominal pain. C. difficile, stool workup and cultures have been negative since admission. (3) Chronic low back pain Is this a current diagnosis for this admission?: Yes Summary: Continue Flexeril, lidocaine patch, Lyrica and Tramadol. Status post synovial cyst aspiration and epidural injection of the lumbar spine. Follow up with PCP and Pain Management (4) Anemia Is this a current diagnosis for this admission?: Yes Summary: Anemia secondary to GI bleed. She has received a total of 5 u pRBCs since admission. Hemoglobin today is 10.3 from 9.4. She received 2 pRBCs 01/18/2018. One dose of Injectafer for iron deficiency anemia yesterday. - Additional Information Resuscitation Status: Full Code Discharge Diet: As Tolerated Discharge Activity: Activity As Tolerated Prescriptions: Lansoprazole [Prevacid 30 mg Odt Tablet] 30 mg PO Q6AM 30 Days #30 tab.rap. Lidocaine [Lidoderm 5% (700 mg) Transdermal Patch] 1 patch TP DAILY 5 Days #5 adh..patch Pregabalin [Lyrica 75 mg Capsule] 75 mg PO QHS 30 Days #30 capsule Tramadol HCl [Ultram 50 mg Tablet] 50 mg PO Q6HP PRN 15 Days #60 tablet PRN Reason: Home Medications: Atorvastatin Calcium [Lipitor 40 mg Tablet] 40 mg PO QHS 01/08/18 Bisacodyl [Women's Laxative] 5 mg PO DAILYP PRN 01/08/18 Lansoprazole [Prevacid 30 mg Odt Tablet] 30 mg PO Q6AM 30 Days #30 tab. Lidocaine [Lidoderm 5% (700 mg) Transdermal Patch] 1 patch TP DAILY 5 Days #5 adh..patch 01/19/18 Pregabalin [Lyrica 75 mg Capsule] 75 mg PO QHS 30 Days #30 capsule 01/19/18 Tramadol HCl [Ultram 50 mg Tablet] 50 mg PO Q6HP PRN 15 Days #60 tablet History of Present Illness History of Present Illness: RC BULL is a 58 year old female with PMHx hyperlipidemia and chronic LBP presents to the emergency department complaining of rectal bleeding and some abdominal cramps onset this morning. She was having back pain a week ago was given a does of Merol Doespak, Motrin by ED doctor. She states that it was not controlling her pain and she bought OTC Aleive. She has been Motrin, Aleiv and Steroid for a week. While in ED she multiple BBPR. Pt was given 2 PRBC and IV fluids. She was admitted for possible Endoscopy/Colonoscopyo. She states she feels weak with crampy abdominal pain, o/w denies any fever, chill, n/v, chest pain, sob or any urinary symptoms. Denies having this problem before. Denies EtOH abuse or personal/family history of GI malignancy. Physical Exam Vital Signs: Temp Pulse Resp BP Pulse Ox 98.1 F 74 16 126/72 H 100 01/19/18 12:40 01/19/18 12:40 01/19/18 12:40 01/19/18 12:40 01/19/18 12:40 General appearance: PRESENT: no acute distress, well-developed, well-nourished Head exam: PRESENT: atraumatic, normocephalic Eye exam: PRESENT: conjunctiva pink, EOMI, PERRLA. ABSENT: scleral icterus Ear exam: PRESENT: normal external ear exam Mouth exam: PRESENT: moist, tongue midline Neck exam: ABSENT: carotid bruit, JVD, lymphadenopathy, thyromegaly Respiratory exam: PRESENT: clear to auscultation isaac. ABSENT: rales, rhonchi, wheezes Cardiovascular exam: PRESENT: RRR. ABSENT: diastolic murmur, rubs, systolic murmur Pulses: PRESENT: normal dorsalis pedis pul Vascular exam: PRESENT: normal capillary refill GI/Abdominal exam: PRESENT: normal bowel sounds, soft. ABSENT: distended, guarding, mass, organolmegaly, rebound, tenderness Rectal exam: PRESENT: deferred Extremities exam: PRESENT: full ROM. ABSENT: calf tenderness, clubbing, pedal edema Neurological exam: PRESENT: alert, awake, oriented to person, oriented to place , oriented to time, oriented to situation, CN II-XII grossly intact. ABSENT: motor sensory deficit Psychiatric exam: PRESENT: appropriate affect, normal mood. ABSENT: homicidal ideation, suicidal ideation Skin exam: PRESENT: dry, intact, warm. ABSENT: cyanosis, rash Results Laboratory Results: 01/19/18 04:27 01/17/18 04:52 Impressions: GI Bleed Scan Nuclear Medicine 01/10/18 00:00 IMPRESSION: No active GI bleed discerned. The results of the examination have been personally discussed with the referring health care provider, Dr. Obrien immediately following interpretation of the examination on 01/10/2018 10:42 PM CDT. Lumbar Spine X-Ray 01/10/18 00:00 IMPRESSION: Grade 1-2 anterolisthesis of L4 on L5 with posterior element hypertrophy at L4-L5 and L5-S1. There is disc space narrowing at the same 2 levels. Lumbar Spine MRI 01/13/18 00:00 IMPRESSION: Advanced degenerative disc and facet changes most pronounced at L4- 5 as above. Spine Flexion/Extension X-Ray 01/13/18 00:00 IMPRESSION: No change and L4-5 listhesis between flexion and extension imaging. Needle Aspiration 01/17/18 00:00 IMPRESSION: IMAGE(S) OBTAINED DURING PROCEDURE. Epidural Injection 01/17/18 11:30 IMPRESSION: IMAGE(S) OBTAINED DURING PROCEDURE. Qualifiers - * PATIENT BEING DISCHARGED WITH ANY OF THE FOLLOWING DIAGNOSIS: No VTE patient discharged on overlapping Therapy?: Yes
== END 2018-01-19 13:05 | disposition home or self-care (01) | DRG 378 ==
LOC: ER 10:37 → EH 15:37 → 3W 01-09 13:01 → ICU 01-10 20:11 → 3W 01-12 19:15
PROVIDERS: ADMIT Internal Medicine; ATTEND Internal Medicine
PROC: 30233N1 Transfusion of Nonautologous Red Blood Cells into Peripheral Vein, Percutaneous Approach (ICD-10-PCS; 2018-01-08)
PROC: 0DB98ZX Excision of Duodenum, Via Natural or Artificial Opening Endoscopic, Diagnostic (ICD-10-PCS; principal; 2018-01-09 11:30)
PROC: 0DB68ZX Excision of Stomach, Via Natural or Artificial Opening Endoscopic, Diagnostic (ICD-10-PCS; 2018-01-09 11:30)
PROC: 0DBH8ZX Excision of Cecum, Via Natural or Artificial Opening Endoscopic, Diagnostic (ICD-10-PCS; 2018-01-09 11:30)
PROC: 30233R1 Transfusion of Nonautologous Platelets into Peripheral Vein, Percutaneous Approach (ICD-10-PCS; 2018-01-10)
PROC: 30233K1 Transfusion of Nonautologous Frozen Plasma into Peripheral Vein, Percutaneous Approach (ICD-10-PCS; 2018-01-13)
PROC: 30233N1 Transfusion of Nonautologous Red Blood Cells into Peripheral Vein, Percutaneous Approach (ICD-10-PCS; 2018-01-14)
PROC: 30233N1 Transfusion of Nonautologous Red Blood Cells into Peripheral Vein, Percutaneous Approach (ICD-10-PCS; 2018-01-15)
PROC: 0M9 Bursae and Ligaments, Drainage (ICD-10-PCS; 2018-01-17)
PROC: 3E0R3BZ Introduction of Anesthetic Agent into Spinal Canal, Percutaneous Approach (ICD-10-PCS; 2018-01-17)
PROC: 3E0R33Z Introduction of Anti-inflammatory into Spinal Canal, Percutaneous Approach (ICD-10-PCS; 2018-01-17)
DX: K57.31 Diverticulosis of large intestine without perforation or abscess with bleeding (principal); D62 Acute posthemorrhagic anemia; K63.5 Polyp of colon; K52.9 Noninfective gastroenteritis and colitis, unspecified; K29.80 Duodenitis without bleeding; M47.26 Other spondylosis with radiculopathy, lumbar region; E87.6 Hypokalemia; E78.5 Hyperlipidemia, unspecified; M54.5 Low back pain; G89.29 Other chronic pain; Z79.899 Other long term (current) drug therapy
CPT/HCPCS: 10022; 36415; 36430; 43239; 45380; 45384; 62321; 72110; 72120; 72148; 78278; 80048; 80053; 81001; 82272; 82607; 82728; 82746; 82803; 83540; 83550; 83605; 83735; 84132; 85025; 85027; 85045; 85610; 85730; 86850; 86900; 86901; 86920; 87040; 87045; 87205; 87493; 88305; 88342; 89055; 93005; 93010; 96361; 96374; 96375; 99291; A9560; G8978-GP; G8979-GP; J0131; J0171; J1020; J1170; J1200; J1439; J1610; J1756; J1940; J1956; J2060; J2250; J2310; J2405; J2597; J3010; J3475; J3480; J3490; J7030; J7050; P9016; P9017; P9035; S0164

== ENCOUNTER → 2018-05-04 | Outpatient (CLI) | payer MEDICARE, MEDICAID ==
--- NOTE | 2018-05-04 15:37 | XCELERA REPORT ---
[address] [facility] [address] Lower Extremity Venous Evaluation Procedure: Color flow and duplex imaging bilaterally of the veins of the lower extremities as well as the Common Femoral veins. Right Sided Venous Evaluation Normal vessel filling wall to wall, compression and augmentation as well as Colour flow down to the infrageniculate veins. Left Sided Venous Evaluation Normal vessel filling wall to wall, compression and augmentation as well as Colour flow down to the infrageniculate veins. Interpretation Summary No duplex evidence of DVT or obstruction in the bilateral lower extremities. Name: RC BULL Age: 58 yrs Gender: Female : 1960 Patient Status: Outpatient Patient Location: Study Date: 05/04/2018 01:05 PM Reason For Study: SWELLING Ordering Physician: KATELYN WELLS Performed By: Tanisha Light : KATELYN WELLS > Bravo Munoz
== END ==
LOC: SP 11:59
PROVIDERS: ATTEND Family Medicine
DX: R22.43 Localized swelling, mass and lump, lower limb, bilateral (principal)
CPT/HCPCS: 93970

== ENCOUNTER 2018-05-06 23:03 | Emergency (ER) | payer MEDICAID, MEDICARE ==
[2018-05-06] MEDS ORDERED: NORMAL SALINE 1000 ML 1,000 ML IV ONE (23:19)
[2018-05-06] MEDS ORDERED: ACETAMINOPHEN 325 MG TABLET PO ONE (23:20)
[2018-05-06] MEDS ORDERED: ONDANSETRON HCL INJ/PF 4 MG/2 ML SDV IV ONE (23:20)
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
[2018-05-06 23:50] LABS: ABSOLUTE BASOPHILS # (AUTO) 0.1 10^3/uL (0.0-0.2); ABSOLUTE LYMPHOCYTES (AUTO) 2.1 10^3/uL (0.5-4.7); ABSOLUTE MONOCYTES (AUTO) 0.4 10^3/uL (0.1-1.4); ABSOLUTE NEUT (AUTO) 3.1 10^3/uL (1.7-8.2); BASOPHILS % (AUTO) 0.9 % (0-2); EOSINOPHILS % (AUTO) 0.1 % (0-6); HEMATOCRIT 44.3 % (36.0-47.0); HEMOGLOBIN 14.7 g/dL (12.0-15.5); LYMPHOCYTES % (AUTO) 37.2 % (13-45); MEAN CORPUSCULAR HEMOGLOBIN 26.9 pg (27.0-33.4); MEAN CORPUSCULAR HGB CONC 33.2 g/dL (32.0-36.0); MEAN CORPUSCULAR VOLUME 81 fl (80-97); MONOCYTES % (AUTO) 6.9 % (3-13); PLATELET COUNT 263 10^3/uL (150-450); RED BLOOD COUNT 5.46 10^6/uL (3.72-5.28); RED CELL DISTRIBUTION WIDTH 15.3 % (11.5-14.0); SEGMENTED NEUTROPHILS % (AUTO) 54.9 % (42-78); TOTAL CELLS COUNTED % (AUTO) 100 %; WHITE BLOOD COUNT 5.6 10^3/uL (4.0-10.5)
[2018-05-07 00:06] LABS: ALCOHOL 176 mg/dL (NONE DETECTED); ANION GAP 10 (5-19); BLOOD UREA NITROGEN 9 mg/dL (7-20); CALCIUM 9.5 mg/dL (8.4-10.2); CARBON DIOXIDE 28 mmol/L (22-30); CHLORIDE 108 mmol/L (98-107); GLUCOSE 146 mg/dL (75-110); POTASSIUM 3.9 mmol/L (3.6-5.0); SODIUM 146.2 mmol/L (137-145)
--- NOTE | 2018-05-07 00:40 | RADIOLOGY REPORT (SQ) ---
EXAM DESCRIPTION: XR SHOULDER 2 OR MORE VIEWS COMPLETED DATE/TME: 05/06/2018 23:19 CLINICAL HISTORY: 58 years Female, shoulder pain COMPARISON: None. Findings: Mild osteoarthritis. Bones, joints, and soft tissues of the LEFT XR SHOULDER 3 VIEWS appear otherwise intact. IMPRESSION: No acute findings.
[2018-05-07] MEDS ORDERED: TRAMADOL HCL 50 MG TABLET PO ONE (04:06)
--- NOTE | 2018-05-07 06:09 | EKG REPORT ---
SEVERITY:- ABNORMAL ECG - SINUS RHYTHM LEFT VENTRICULAR HYPERTROPHY : Confirmed by: Jabari Shelby MD 07-May-2018 06:09:11
[2018-05-07] MEDS ORDERED: ONDANSETRON 4 MG TAB.RAPDIS PO ONE (06:26)
--- NOTE | 2018-05-07 10:21 | ER Document Report ---
Doctor's Note Notes: 05/07/18 10:17 Rounds: Patient evaluated for alcohol intoxication and an injured shoulder. She says she fell and hurt her left shoulder. X-rays earlier in the evening, showed no abnormality of the left shoulder. Patient admits that she was also drinking alcohol. Her EtOH level was 176. Has no other complaints at this time. Requests a cane even though she says she has one at home, but just needs 1 to get from here to a cab and then from the calf into her house. Only complains of some nausea at this time. Vital signs are all normal. Patient appears to be medically stable for transfer or discharge. Kalyn Quesada MD
[2018-05-07 10:35] VITALS: BP 124/91
== END 2018-05-07 10:40 | disposition home or self-care (01) ==
LOC: ER 23:03
DX: M25.512 Pain in left shoulder (principal); M54.5 Low back pain; F10.920 Alcohol use, unspecified with intoxication, uncomplicated; X58.XXXA Exposure to other specified factors, initial encounter
CPT/HCPCS: 93005; 99285; 96361; 96374; 36415; 80307; 85025; 80048; 73030; 93010; J3490; S0119; J2405; J7030

== ENCOUNTER 2018-06-14 11:24 | Emergency (ER) | payer MEDICAID, MEDICARE ==
[2018-06-14 11:35] VITALS: BP 136/82
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
== END 2018-06-14 13:06 | disposition home or self-care (01) ==
LOC: ER 11:24
DX: M54.2 Cervicalgia (principal); V49.40XA Driver injured in collision with unspecified motor vehicles in traffic accident, initial encounter
CPT/HCPCS: 72125; 99283